=== PATIENT | female | born 1970 | race Caucasian/White ===

== ENCOUNTER 2016-08-26 17:42 | Inpatient (IN) ==
[2016-08-26] MEDS ORDERED: 0.9 % Sodium Chloride 1,000 ML IVC ONE ×2 (18:15→21:20)
--- NOTE | 2016-08-26 18:15 | Emergency Department Note ---
Disposition Clinical Impression: Superior mesenteric vein thrombosis, Vomiting, Acute diarrhea, Leukocytosis, Elevated C-reactive protein, Ascites, Small bowel edema Disposition: Admitted As Inpatient Referrals: [facility] [employer] [Primary Care Provider] - Forms: Work/School Release, ED Satisfaction Letter General Adult HPI - General Chief complaint: ED Abdominal Pain Stated complaint: ABD Pain Time Seen by Provider: 08/26/16 18:11 Source: patient Limitations: no limitations - History of Present Illness HPI Narrative: 45-year-old female reports emergency department complaining of severe midepigastric and right upper abdominal pain. The pain radiates to the back. She describes bilateral back pain. The patient has had no fall or injury. 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 She has been seen by Dr. Purdy and an ultrasound was done recently to evaluate right upper abdominal pain. The ultrasound was reportedly negative. The patient denies any previous abdominal surgery. There is no history of vaginal discharge or bleeding. She has no previous history of kidney stones. No urinary symptoms or bloody appearing urine. There is no history of at this time. The patient does not have any history of back surgery or back problems. There is no history of bowel or bladder dysfunction chest pain shortness of breath or abdominal pain. The patient is not known to be diabetic she does describe a history of hypertension. She has never had pancreatitis. There is no history of bloody stool. She describes several episodes of diarrhea. She has also had several episodes of emesis, nonbloody. No fevers. The patient developed severe abdominal pain today and came to the emergency department for further evaluation. There is no history of rash. There is no history of bulging in the abdomen. There is no history of syncope leg swelling or pain. The patient is not known to be anticoagulated. The patient has no history of malignancy. Pain Scale: 9 - Related Data Home Medications Medication Instructions Recorded Confirmed Albuterol Sulfate [Proventil Hfa] 2 puff IH Q6H PRN 08/26/16 08/26/16 Aspirin Enteric Coated [Aspirin EC] 162 mg PO DAILY 08/26/16 08/26/16 Atorvastatin [Lipitor] 10 mg PO HS 08/26/16 08/26/16 Etonogestrel/Ethinyl Estradiol 1 each VG AD 08/26/16 08/26/16 [Nuvaring Vaginal Ring] Furosemide [Lasix] 20 mg PO DAILY 08/26/16 08/26/16 Lisinopril [Zestril] 10 mg PO DAILY 08/26/16 08/26/16 Omeprazole Magnesium [Prilosec Otc] 20 mg PO DAILY 08/26/16 08/26/16 Rizatriptan Benzoate [Maxalt] 10 mg PO DAILY PRN 08/26/16 08/26/16 Allergies Allergy/AdvReac Type Severity Reaction Status Date / Time No Known Allergies Allergy Verified 08/26/16 19:31 All systems ED: reviewed and negative except as stated. Past Medical History - Past Medical History Medical history: Reports: GERD, hyperlipidemia, hypertension, other Psychiatric history: Reports: no psych history - Social History Smoking Status: Never smoker Smokeless Tobacco Status: No Alcohol use: Reports: none Drug use: Reports: none Physical Exam - General Limitations: no limitations General appearance: alert, in distress, other (Patient is standing upright and appears to very uncomfortable, she is somewhat diaphoretic but follows commands properly.) - Head Head exam: atraumatic, normocephalic, normal inspection - Eye Eye exam: Present: normal appearance, PERRL, EOMI. Absent: scleral icterus, conjunctival injection, miosis, mydriasis - ENT ENT exam: normal exam, normal oropharynx, mucous membranes moist, TM's normal bilaterally, normal external ear exam - Neck Neck exam: Present: normal inspection, full ROM, trachea midline. Absent: meningismus - Chest Chest inspection: Present: symmetric chest wall rise. Absent: tenderness - Respiratory Respiratory exam: Present: normal lung sounds bilaterally. Absent: respiratory distress, wheezes, accessory muscle use, prolonged expiratory phase - Cardiovascular Cardiovascular exam: Present: regular rate, normal rhythm, normal heart sounds - Abdominal Exam Abdominal exam: Present: soft, Non-Tender, hyperactive bowel sounds. Absent: rebound, rigidity, trauma, Wells's sign, Rovsing's sign Abdominal tenderness: Present: RUQ, epigastrium, moderate - Extremities Exam Extremities exam: Present: normal inspection, full ROM, normal capillary refill. Absent: tenderness, pedal edema, joint swelling, calf tenderness - Expanded Lower Extremity Exam Lower leg exam: Absent: Homans' sign Neurovascular/Tendon exam: Present: normal capillary refill. Absent: motor deficit, sensory deficit, tendon deficit, extremity cold to touch, pallor - Back Exam Back exam: Present: normal inspection, full ROM, CVA tenderness (R), CVA tenderness (L). Absent: tenderness, vertebral tenderness - Neurological Exam Neurological exam: Present: alert, oriented X3, CN II-XII intact. Absent: motor sensory deficit - Psychiatric Psychiatric exam: Present: agitated, anxious - Skin Skin exam: Present: warm, dry, intact, normal color, diaphoresis. Absent: rash , cyanosis, erythema, pallor, mottled Course - Reevaluation(s) Reevaluation #1: The patient declines pelvic examination she denies any vaginal discharge or bleeding. Leukocytosis and an elevated CRP noted. Chest x-ray EKG cardiac testing negative liver function tests lipase chem basic essentially unremarkable. Urinalysis pending. The patient states she cannot urinate. IV fluid was given. Patient family been in contact with Dr. Purdy who is aware that the patient has come to the ED, per reports he has requested a direct phone call consultation regarding the patient's status. I did speak directly with Dr. Purdy and updated him on the patient's testing and care. Vital Signs Temperature 97.4 F L 08/26/16 17:58 Pulse Rate 71 08/26/16 17:58 Respiratory Rate 20 08/26/16 17:58 Blood Pressure 110/58 08/26/16 17:58 O2 Sat by Pulse Oximetry 100 08/26/16 17:58 Temperature 97.4 F L 08/26/16 17:58 Pulse Rate 71 08/26/16 17:58 Respiratory Rate 20 08/26/16 17:58 Blood Pressure 110/58 08/26/16 17:58 O2 Sat by Pulse Oximetry 100 08/26/16 17:58 Oxygen Delivery Oxygen Delivery Room Air Medical Decision Making - MDM Narrative Medical decision making narrative: The patient was treated for pain in the ED. A second call was made, I consulted with the Dr. Purdy/Surgeon regarding the patient's CT findings which include what is described as superior mesenteric vein thrombosis and associated abnormalities via CT scan. Dr. Purdy recommends hospitalization under the medical service with heparinization. A formal STAT surgical consultation has been ordered. Heparin has been ordered. The patient is currently stable. I consulted with the hospitalist on-call Dr. Desai who has come to the bedside in the ED to evaluate the patient. Patient family have been informed regarding the patient's diagnostics and surgical recommendations. While in the ED Dr. Desai attempted to contact Dr. Purdy for direct consultation was unable to get through on his cell phone. A message was left. Dr. Desai also called Dr. Manjarrez/Surgeon on-call to review the case. After his consultation with Dr. Manjarrez, Dr. Desai will admit the patient and the surgical service will act as a medical social consultant. The patient is feeling more comfortable after several doses of Dilaudid. Blood cultures were sent as a precaution a second lactic acid was ordered Invanz was also ordered. The patient and family members are also alterable being managed at this institution versus transfer. - Lab Data Lab results reviewed: Yes I reviewed the patient's lab results. Result diagrams: 08/26/16 19:11 08/26/16 19:11 Lab Results 08/26/16 08/26/16 08/26/16 Range/Units 19:11 19:11 19:11 WBC 19.6 H D (4.3-11.1) K/mcL RBC 5.02 H (3.82-4.97) M/mcL Hgb 14.2 (11.5-15.4) g/dL Hct 41.4 (35.3-44.9) % MCV 82.5 L (83.0-100.0) fL MCH 28.3 (28.0-33.3) pg MCHC 34.3 (31.6-35.5) g/dL RDW 13.0 (11.5-14.5) % Plt Count 247 (140-400) K/mcL MPV 10.2 (9.4-12.4) fL Immature Gran % 0.4 (0-4) % Seg Neutrophils % 80.2 % Lymphocytes % 13.4 % Monocytes % 5.5 % Eosinophils % 0.3 % Basophils % 0.2 % Neutrophils # 15.7 H (1.6-8.9) K/mcL Lymphocytes # 2.6 (0.6-4.6) K/mcL Monocytes # 1.1 (0.0-1.3) K/mcL Eosinophils # 0.1 (0.0-0.6) K/mcL Basophils # 0.0 (0.0-0.2) K/mcL PT 10.8 (9.4-12.1) Seconds INR 1.0 APTT 22.5 L (26.0-36.0) Seconds Sodium 141 (136-145) mEq/L Potassium 3.5 (3.5-4.5) mEq/L Chloride 108 (98-109) mEq/L Carbon Dioxide 20 (19-29) mEq/L BUN 12 (7-20) mg/dL Creatinine 0.82 (0.57-1.11) mg/dL Est GFR ( Amer) > 60 (> 60) Est GFR (Non-Af Amer) > 60 (> 60) BUN/Creatinine Ratio 15 (6-26) Glucose 137 H (70-99) mg/dL Calculated Osmolality 294 (280-300) Lactic Acid (0.5-2.2) mmol/L Calcium 9.3 (8.6-10.8) mg/dL Total Bilirubin 0.7 (0.2-1.2) mg/dL Direct Bilirubin 0.3 (0.0-0.5) mg/dL Indirect Bilirubin 0.4 (0.0-1.2) mg/dL AST 15 (5-34) Units/L ALT 15 (0-55) Units/L Alkaline Phosphatase 82 (38-126) Units/L Troponin I (0-0.03) ng/mL C-Reactive Protein 183 H (Less than 5) mg/L Serum Total Protein 7.9 (6.0-8.3) g/dL Albumin 3.3 L (3.5-5.0) g/dL Globulin 4.6 H (2.4-3.5) g/dL Albumin/Globulin Ratio 0.7 L (1.1-2.2) Lipase 11 (8-78) Units/L Serum , Qual (Negative) 08/26/16 08/26/16 08/26/16 Range/Units 19:11 19:11 19:11 WBC (4.3-11.1) K/mcL RBC (3.82-4.97) M/mcL Hgb (11.5-15.4) g/dL Hct (35.3-44.9) % MCV (83.0-100.0) fL MCH (28.0-33.3) pg MCHC (31.6-35.5) g/dL RDW (11.5-14.5) % Plt Count (140-400) K/mcL MPV (9.4-12.4) fL Immature Gran % (0-4) % Seg Neutrophils % % Lymphocytes % % Monocytes % % Eosinophils % % Basophils % % Neutrophils # (1.6-8.9) K/mcL Lymphocytes # (0.6-4.6) K/mcL Monocytes # (0.0-1.3) K/mcL Eosinophils # (0.0-0.6) K/mcL Basophils # (0.0-0.2) K/mcL PT (9.4-12.1) Seconds INR APTT (26.0-36.0) Seconds Sodium (136-145) mEq/L Potassium (3.5-4.5) mEq/L Chloride (98-109) mEq/L Carbon Dioxide (19-29) mEq/L BUN (7-20) mg/dL Creatinine (0.57-1.11) mg/dL Est GFR ( Amer) (> 60) Est GFR (Non-Af Amer) (> 60) BUN/Creatinine Ratio (6-26) Glucose (70-99) mg/dL Calculated Osmolality (280-300) Lactic Acid 1.6 (0.5-2.2) mmol/L Calcium (8.6-10.8) mg/dL Total Bilirubin (0.2-1.2) mg/dL Direct Bilirubin (0.0-0.5) mg/dL Indirect Bilirubin (0.0-1.2) mg/dL AST (5-34) Units/L ALT (0-55) Units/L Alkaline Phosphatase (38-126) Units/L Troponin I 0.00 (0-0.03) ng/mL C-Reactive Protein (Less than 5) mg/L Serum Total Protein (6.0-8.3) g/dL Albumin (3.5-5.0) g/dL Globulin (2.4-3.5) g/dL Albumin/Globulin Ratio (1.1-2.2) Lipase (8-78) Units/L Serum , Qual Negative (Negative) - Radiology Data Radiology results reviewed: Yes I reviewed the patient's radiology results.
[2016-08-26] MEDS ORDERED: Ondansetron 4 MG/2 ML VIAL IVP ONE ×2 (18:16→19:34)
[2016-08-26] MEDS ORDERED: *HR* HYDROmorphone (PF) 1 MG/ML SYRINGE IVP ONE ×4 (18:16→21:21)
[2016-08-26 19:21] LABS: Basophils % 0.2 %; Eosinophils # 0.1 K/mcL (0.0-0.6); Eosinophils % 0.3 %; Hematocrit 41.4 % (35.3-44.9); Hemoglobin 14.2 g/dL (11.5-15.4); Immature Granulocytes % 0.4 % (0-4); Lymphocytes # 2.6 K/mcL (0.6-4.6); Lymphocytes % 13.4 %; Mean Corpuscular HGB Conc 34.3 g/dL (31.6-35.5); Mean Corpuscular Hemoglobin 28.3 pg (28.0-33.3); Mean Corpuscular Volume 82.5 fL (83.0-100.0); Mean Platelet Volume 10.2 fL (9.4-12.4); Monocytes # 1.1 K/mcL (0.0-1.3); Monocytes % 5.5 %; Neutrophils # 15.7 K/mcL (1.6-8.9); Platelet Count 247 K/mcL (140-400); Red Blood Count 5.02 M/mcL (3.82-4.97); Segmented Neutrophils % 80.2 %
[2016-08-26 19:26] LABS: Prothrombin Time 10.8 Seconds (9.4-12.1)
[2016-08-26 19:29] LABS: Activated Partial Thrombo Time 22.5 Seconds (26.0-36.0)
[2016-08-26 19:42] LABS: Alanine Aminotransferase 15 Units/L (0-55); Albumin 3.3 g/dL (3.5-5.0); Albumin/Globulin Ratio 0.7 (1.1-2.2); Alkaline Phosphatase 82 Units/L (38-126); Aspartate Amino Transferase 15 Units/L (5-34); BUN/Creatinine Ratio 15 (6-26); Bilirubin,Direct 0.3 mg/dL (0.0-0.5); Bilirubin,Indirect 0.4 mg/dL (0.0-1.2); Bilirubin,Total 0.7 mg/dL (0.2-1.2); Blood Urea Nitrogen 12 mg/dL (7-20); C-Reactive Protein 183 mg/L (Less than 5); Calcium 9.3 mg/dL (8.6-10.8); Carbon Dioxide 20 mEq/L (19-29); Chloride 108 mEq/L (98-109); Globulin 4.6 g/dL (2.4-3.5); Glucose 137 mg/dL (70-99); Lipase 11 Units/L (8-78); Osmolality,Calculated 294 (280-300); Potassium 3.5 mEq/L (3.5-4.5); Sodium 141 mEq/L (136-145); Total Protein 7.9 g/dL (6.0-8.3); eGFR For African Americans > 60 (> 60); eGFR For Non-African Americans > 60 (> 60)
[2016-08-26] MEDS ORDERED: *HR* Heparin 5,000 UNIT/ML VIAL IVP ONE (21:28)
[2016-08-26] MEDS ORDERED: *HR* Heparin 5,000 UNIT/ML VIAL IVP PRN (21:28)
[2016-08-26] MEDS: Heparin 25,000 UNIT/500 ML D5W 25,000 UNIT/500 ML MLS IVC SCH (22:40)
[2016-08-26] MEDS ORDERED: Ertapenem 1,000 MG in 0.9 % Sodium Chloride Mini Bag 100 ML IVPB ONE (22:49)
[2016-08-26] MEDS ORDERED: *HR* LORazepam 2 MG/ML VIAL IVP ONE (23:06)
[2016-08-27] MEDS ORDERED: Ondansetron 4 MG/2 ML VIAL IVP PRN (01:06)
[2016-08-27] MEDS ORDERED: Naloxone 0.4 MG/ML INJ IVP PRN (01:06)
[2016-08-27] MEDS ORDERED: *HR* HYDROmorphone (PF) 1 MG/ML SYRINGE IVP PRN (01:06)
--- NOTE | 2016-08-27 01:30 | Internal Med History&Physical ---
Date of Encounter: 08/26/16 Time of Encounter: 22:00 Assessment and Plan (1) Superior mesenteric vein thrombosis Current visit: Yes Status: Acute 1. Patient to be maintained on Heparin drip. 2. Surgery consult -- discussed with Dr. Manjarrez. 3. Pain control with IV Dilaudid and close monitoring. 4. Blood cultures obtained in ER. 5. Antibiotics initiated to cover GI alison (Zosyn and Flagyl). 6. Strict npo and IVF hydration. 7. Patient will need hypercoagulable work-up in the near future -- to be done as outpatient once patient recovers from acute illness. 8. Recommend stopping her hormone therapy/contraception (Nuvaring) as this may put her at increased risk for DVT/PE. (2) Small bowel edema Current visit: Yes Status: Acute 1. Due to SMV thrombus. 2. Surgery consult as above. 3. Strict npo. 4. Follow clinically and will defer to surgery for any surgical intervention. (3) Hypertension Current visit: Yes Status: Chronic 1. Hold all po meds. 2. Monitor BP and treat as necessary with IV meds. Qualifiers: Hypertension type: essential hypertension Qualified Code(s): I10 - Essential (primary) hypertension (4) DVT prophylaxis Current visit: Yes Status: Acute 1. On heparin drip. Internal Medicine - H&P: HPI Chief complaint: abdominal pain Admitted From: Emergency Dept Plans for Post Hospital Care: Home History of present illness: Ms. Reid is a 45 year old female who presented to the ER tonight with about a one-week history of abdominal pain, nausea, and vomiting. She had been seeing her surgeon for consideration of possible gallbladder disease. However, the abdominal pain became much worse to the point it was unbearable tonight. Workup in the ER revealed patient to have leukocytosis on routine labs. Chemistry profile was fairly unremarkable. She then had CT of the abdomen, which revealed a superior mesenteric vein thrombosis with some associated bowel wall edema. ER staff contacted Dr. Nathan Purdy regarding this patient as he had been seeing her in the office in consultation. He recommended patient be admitted to the hospitalist service with a surgical consult. Er staff then contacted me and I saw patient in the ER. Upon my assessment of the patient, she was writhing in pain and unable to get into a comfortable position. She described the pain as severe in her upper mid abdomen and radiating to her right side. Despite the severe pain, her vital signs are stable. Because of the thrombus in her superior mesenteric vein and associated bowel wall edema, I was very concerned about possible need for surgery at a [facility]. I tried contacting Dr. Nathan Purdy but I was unable to reach him. I then contacted Dr. Manjarrez, who was on-call for general surgery, and I spoke with him about the case. He reviewed the patient's CT scan and he then discussed the case with me. He recommended patient be admitted and started on IV heparin drip and antibiotics with nothing by mouth status. He agreed to see patient in surgery consultation and will follow and co-manage patient with us. Patient preferred to stay here at [place] and did not want to be transferred unless necessary. Given my above discussions with Dr. Manjarrez and available surgical services, we admitted patient to the hospitalist service with a consult to General surgery. Her pain was controlled in the ER with significant dosing of IV Dilaudid. Antibiotics were initiated in the ER. Blood cultures were drawn. Heparin drip was initiated in the ER as well. She was subsequently admitted to the hospitalist service thereafter. Per my discussions with her nurse, her pain is fairly well controlled now. Past Med Surg Social Fam HX - Past Medical History Attestation: Yes The following information was validated with the patient. Source: patient, old records reviewed, obtained from family Medical history: GERD, hyperlipidemia, hypertension Psychiatric history: no psych history - Past Surgical History Surgical History: - Social History Smoking Status: Never smoker Smokeless Tobacco Status: No Alcohol use: none Drug use: none Occupational status: employed Current living situation: Home, With Family Activity Level: Independent ambulation - Family History Father Hx Family Cardiac Disorders: Yes (stroke) Mother Hx Family Cardiac Disorders: No - Additional Family History Additional family history: No known FH of clotting disorder Internal Medicine - H&P: Meds Albuterol Sulfate [Proventil Hfa] 2 puff IH Q6H PRN 08/26/16 [History] Aspirin Enteric Coated [Aspirin EC] 162 mg PO DAILY 08/26/16 [History] Atorvastatin [Lipitor] 10 mg PO HS 08/26/16 [History] Etonogestrel/Ethinyl Estradiol [Nuvaring Vaginal Ring] 1 each VG AD 08/26/16 [ History] Furosemide [Lasix] 20 mg PO DAILY 08/26/16 [History] Lisinopril [Zestril] 10 mg PO DAILY 08/26/16 [History] Omeprazole Magnesium [Prilosec Otc] 20 mg PO DAILY 08/26/16 [History] Rizatriptan Benzoate [Maxalt] 10 mg PO DAILY PRN 08/26/16 [History] Allergies No Known Allergies Allergy (Verified 08/26/16 19:31) - Constitutional Constitutional: chills, no fever(s), no night sweats - EENT Eyes: no blurry vision, no change in vision Ears: no ear pain Nose, mouth and throat: no sinus pain, no sore throat - Cardiovascular Cardiovascular ROS IM: diaphoresis, no chest pain, no dyspnea - Respiratory Respiratory: no cough, no dyspnea, no hemoptysis, no dyspnea on exertion - Gastrointestinal Gastrointestinal: abdominal pain, nausea, no hematemesis, no hematochezia, no melena - Genitourinary Genitourinary: no dysuria, no hematuria - Musculoskeletal Musculoskeletal ROS IM: back pain, no arthralgias - Integumentary Integumentary IM: no rash, no jaundice - Neurological Neurological ROS: headache(s), no focal weakness - Psychiatric Psychiatric: no anxiety, no depression - Endocrine Endocrine IM: no polydipsia, no polyuria - Allergic/Immunologic Allergic/Immunologic: GI upset with certain foods, no wheezing - Constitutional Vitals: Temp Pulse Resp BP Pulse Ox 98.0 F 75 16 135/84 96 08/27/16 00:20 08/27/16 00:20 08/27/16 00:20 08/27/16 00:20 08/27/16 00:20 General appearance: Present: cooperative, A&O X 3, severe distress, answers questions appropriately Exam: pt writhing in pain on initial exam - Head Head exam: Present: atraumatic, normal inspection - Expanded Head Exam Head exam expanded: Absent: abrasion, general tenderness - Eye Eye exam: Present: EOMI, PERRL. Absent: scleral icterus Pupils: Present: normal accommodation - ENT ENT exam: Present: mucous membranes dry, normal exam, normal oropharynx - Neck Neck exam general surgery: Present: full ROM, supple. Absent: tenderness, thyromegaly - Respiratory Respiratory exam: Present: CTAB. Absent: rales, respiratory distress, rhonchi, wheezes - Cardiovascular Cardiovascular exam: Present: RRR, +S1, +S2. Absent: diastolic murmur, systolic murmur - GI/Abdominal GI/Abdominal exam: Present: guarding, hypoactive bowel sounds, tenderness ( diffuse -- mostly upper midabdomen with radiation to right side), no peritoneal signs. Absent: hepatomegaly, mass, rebound, splenomegaly - Extremities Exam Extremities exam: Present: full ROM, warm. Absent: calf tenderness, pedal edema , tenderness - Back Exam Back exam: Present: normal inspection. Absent: CVA tenderness (L), CVA tenderness (R) - Neurological Exam Neurological exam: Present: alert, CN II-XII intact, oriented X3, no focal deficits - Psychiatric Psychiatric exam: Present: anxious. Absent: depressed - Skin Skin exam: Present: dry, warm. Absent: rash Internal Med - H&P Results - Labs CBC & Chem 7: 08/26/16 19:11 08/26/16 19:11 - Diagnostic Studies CT scan - abdomen Additional comments: Report reviewed and findings discussed with Dr. Manjarrez - VTE Reasons for not Prescribing Prophylaxis: Not indicated-Anticoagulated or INR therapeutic
[2016-08-27 03:15] LABS: Bilirubin,Urine Negative (Negative); Blood,Urine Negative (Negative); Clarity,Urine Clear (Clear); Color,Urine Yellow (Yellow); Glucose,Urine (UA) Normal (Normal); Ketones,Urine 40 mg/dL (Negative); Leukocyte Esterase,Urine Negative (Negative); Nitrite,Urine Negative (Negative); Protein,Urine 30 mg/dL (Neg-Trace); Specific Gravity,Urine > 1.030 (1.010-1.025); Urobilinogen,Urine Normal (Normal)
[2016-08-27 03:18] LABS: Bacteria,Urine Few per hpf (None-Few); Hyaline Casts,Urine Few per lpf (None-Few); Squamous Epithelial Cell,Urine Many per lpf (None-Few)
[2016-08-27] MEDS ORDERED: *HR* HYDROmorphone (PF) 1 MG/ML SYRINGE IVP ONE (03:28)
[2016-08-27 05:07] LABS: Basophils % 0.1 %; Hematocrit 45.3 % (35.3-44.9); Hemoglobin 15.6 g/dL (11.5-15.4); Immature Granulocytes % 0.6 % (0-4); Lymphocytes # 0.8 K/mcL (0.6-4.6); Lymphocytes % 3.7 %; Mean Corpuscular HGB Conc 34.4 g/dL (31.6-35.5); Mean Corpuscular Hemoglobin 28.6 pg (28.0-33.3); Mean Corpuscular Volume 83.1 fL (83.0-100.0); Mean Platelet Volume 10.4 fL (9.4-12.4); Monocytes # 0.8 K/mcL (0.0-1.3); Monocytes % 3.6 %; Platelet Count 263 K/mcL (140-400); Red Blood Count 5.45 M/mcL (3.82-4.97); Red Cell Distribution Width 13.2 % (11.5-14.5)
[2016-08-27 05:22] LABS: Alanine Aminotransferase 12 Units/L (0-55); Albumin/Globulin Ratio 0.6 (1.1-2.2); Alkaline Phosphatase 71 Units/L (38-126); Aspartate Amino Transferase 11 Units/L (5-34); BUN/Creatinine Ratio 15 (6-26); Bilirubin,Total 0.4 mg/dL (0.2-1.2); Blood Urea Nitrogen 12 mg/dL (7-20); Calcium 8.5 mg/dL (8.6-10.8); Carbon Dioxide 16 mEq/L (19-29); Chloride 109 mEq/L (98-109); Globulin 4.2 g/dL (2.4-3.5); Glucose 221 mg/dL (70-99); Magnesium 1.7 mg/dL (1.6-2.6); Osmolality,Calculated 293 (280-300); Potassium 4.3 mEq/L (3.5-4.5); Sodium 138 mEq/L (136-145); Total Protein 6.8 g/dL (6.0-8.3); eGFR For African Americans > 60 (> 60); eGFR For Non-African Americans > 60 (> 60)
[2016-08-27] MEDS: *HR* Heparin 5,000 UNIT/ML VIAL IVP PRN ×2 (05:28→20:17)
[2016-08-27 05:34] LABS: Albumin 2.6 g/dL (3.5-5.0)
--- NOTE | 2016-08-27 06:24 | General Surgery Consult Note ---
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 I am very concerned about the level of her abdominal pain. Her white count did increase from 19,000-22, 000. I agree with the IV antibiotics, IV fluid hydration, and anticoagulation to prevent propagation of the SMV thrombus. Overall I am concerned about the possibility for the venous congestion of the small bowel causing an acute ischemic event of the small bowel that may require surgical intervention. I do think it will be appropriate to continue with this current course however I did caution the patient that it is possible that she may require a small bowel resection if her symptoms do not improve. She is currently not exhibiting signs of hypotension or tachycardia and I will modify her pain medication and allow ice chips at this time. The most important thing will be serial abdominal examination and monitoring of her vital signs. Discussed with the patient and and they agree with the above plan. Another issue that will need to be evaluated is the cause behind her SMV thrombus. She has no recent surgeries and no trauma to the area. Likely may require a workup for a hypercoagulable state. History of Present Illness Consult date: 08/27/16 Reason for consult: abdominal pain Requesting physician: Immanuel Corbett History of present illness: the patient is a 45 year old female who is known to [facility]. Resented to my office on 08/25/2016 with symptoms of epigastric abdominal pain associated with bloating that started approximately 4 days prior (this past Tuesday). She states that she had diarrhea at the time and did have an episode of nausea vomiting but currently only has the nausea. She saw me in the office and had an ultrasound of the gallbladder due to concern that this was biliary colic or acute cholecystitis symptoms prior to her office visit with the ultrasound was normal. A HIDA scan and liver function tests were then ordered and the patient was to follow-up in the office afterwards. The patient continued to have worsening pain symptoms and because of the excruciating nature of her pain she subsequently presented to [facility] yesterday evening for further evaluation of her symptoms. She denied any fever attempts and states that she did have multiple diarrhea yesterday (approximate 20) with no rectal bleeding. She denies flatus and states that her abdomen feels much more distended currently. She states that the pain is not currently controlled with current pain medications. When asked about with the patient due to her pain symptoms and a CT scan showing an SMV thrombus. Past Med Surg Social Fam HX - Past Medical History Medical history: GERD, hyperlipidemia, hypertension Psychiatric history: no psych history - Past Surgical History Surgical History: - Social History Smoking Status: Never smoker Smokeless Tobacco Status: No Alcohol use: none Drug use: none - Family History Father Hx Family Cardiac Disorders: Yes (stroke) Mother Hx Family Cardiac Disorders: No Medications and Allergies Albuterol Sulfate [Proventil Hfa] 2 puff IH Q6H PRN 08/26/16 [History] Aspirin Enteric Coated [Aspirin EC] 162 mg PO DAILY 08/26/16 [History] Atorvastatin [Lipitor] 10 mg PO HS 08/26/16 [History] Etonogestrel/Ethinyl Estradiol [Nuvaring Vaginal Ring] 1 each VG AD 08/26/16 [ History] Furosemide [Lasix] 20 mg PO DAILY 08/26/16 [History] Lisinopril [Zestril] 10 mg PO DAILY 08/26/16 [History] Omeprazole Magnesium [Prilosec Otc] 20 mg PO DAILY 08/26/16 [History] Rizatriptan Benzoate [Maxalt] 10 mg PO DAILY PRN 08/26/16 [History] Allergies No Known Allergies Allergy (Verified 08/26/16 19:31) Review of Systems All systems PM: reviewed and no additional remarkable complaints except as stated All systems PM: A 10-system review of systems was performed and is negative for pertinent findings except as documented above in the HPI. General Surgery Exam Initial Vital Signs Temp Pulse Resp BP Pulse Ox 97.4 F L 71 20 110/58 100 08/26/16 17:58 08/26/16 17:58 08/26/16 17:58 08/26/16 17:58 08/26/16 17:58 - Eyes PERRL, normal ocular movement - Respiratory normal expansion, normal respiratory effort, clear to auscultation - Cardiovascular Cardiovascular exam: Present: RRR, no murmurs/rubs/gallops - Abdomen Abdomen general surgery: Present: soft, distended, tender (Generalized abdominal pain with more pain noted in the mid to lower abdomen with palpation.) - Neurologic Present: CN 2-12 grossly intact - Musculoskeletal Present: other (No clubbing or cyanosis noted) - Psychiatric Psychiatric general surgery: Present: A&Ox3, oriented to person, oriented to place, oriented to time, speech is normal Exam Initial Vital Signs Temp Pulse Resp BP Pulse Ox 97.4 F L 71 20 110/58 100 08/26/16 17:58 08/26/16 17:58 08/26/16 17:58 08/26/16 17:58 08/26/16 17:58 Results - Labs 08/30/16 03:25 08/30/16 03:25 Abnormal lab results WBC 22.8 K/mcL (4.3-11.1) H 08/27/16 04:56 RBC 5.45 M/mcL (3.82-4.97) H 08/27/16 04:56 Hgb 15.6 g/dL (11.5-15.4) H 08/27/16 04:56 Hct 45.3 % (35.3-44.9) H 08/27/16 04:56 Neutrophils # 21.0 K/mcL (1.6-8.9) H 08/27/16 04:56 APTT 47.2 Seconds (26.0-36.0) H D 08/27/16 04:56 Carbon Dioxide 16 mEq/L (19-29) L 08/27/16 04:56 Glucose 221 mg/dL (70-99) H 08/27/16 04:56 POC Glucose 217 (58-89) H 08/27/16 05:32 Calcium 8.5 mg/dL (8.6-10.8) L 08/27/16 04:56 C-Reactive Protein 183 mg/L (Less than 5) H 08/26/16 19:11 Albumin 2.6 g/dL (3.5-5.0) L D 08/27/16 04:56 Globulin 4.2 g/dL (2.4-3.5) H 08/27/16 04:56 Albumin/Globulin Ratio 0.6 (1.1-2.2) L 08/27/16 04:56 Ur Specific [place] > 1.030 (1.010-1.025) H 08/27/16 03:00 Urine Protein 30 mg/dL (Neg-Trace) H 08/27/16 03:00 Urine Ketones 40 mg/dL (Negative) H 08/27/16 03:00 Urine Microscopic RBC 3-5 per hpf (0-3) H 08/27/16 03:00 Urine Microscopic WBC 5-15 per hpf (0-3) H 08/27/16 03:00 Ur Squamous Epith Cells Many per lpf (None-Few) H 08/27/16 03:00 Ur Culture Indicated? YES (NO) A 08/27/16 03:00 Diabetes panel 08/27/16 Range/Units 04:56 Sodium 138 (136-145) mEq/L Potassium 4.3 (3.5-4.5) mEq/L Chloride 109 (98-109) mEq/L Carbon Dioxide 16 L (19-29) mEq/L BUN 12 (7-20) mg/dL Creatinine 0.81 (0.57-1.11) mg/dL Glucose 221 H (70-99) mg/dL Calcium 8.5 L (8.6-10.8) mg/dL AST 11 (5-34) Units/L ALT 12 (0-55) Units/L Alkaline Phosphatase 71 (38-126) Units/L Albumin 2.6 L D (3.5-5.0) g/dL Calcium panel 08/27/16 Range/Units 04:56 Calcium 8.5 L (8.6-10.8) mg/dL Albumin 2.6 L D (3.5-5.0) g/dL Pituitary panel 08/27/16 Range/Units 04:56 Sodium 138 (136-145) mEq/L Potassium 4.3 (3.5-4.5) mEq/L Chloride 109 (98-109) mEq/L Carbon Dioxide 16 L (19-29) mEq/L BUN 12 (7-20) mg/dL Creatinine 0.81 (0.57-1.11) mg/dL Glucose 221 H (70-99) mg/dL Calcium 8.5 L (8.6-10.8) mg/dL Adrenal panel 08/27/16 Range/Units 04:56 Sodium 138 (136-145) mEq/L Potassium 4.3 (3.5-4.5) mEq/L Chloride 109 (98-109) mEq/L Carbon Dioxide 16 L (19-29) mEq/L BUN 12 (7-20) mg/dL Creatinine 0.81 (0.57-1.11) mg/dL Glucose 221 H (70-99) mg/dL Calcium 8.5 L (8.6-10.8) mg/dL Total Bilirubin 0.4 (0.2-1.2) mg/dL AST 11 (5-34) Units/L ALT 12 (0-55) Units/L Alkaline Phosphatase 71 (38-126) Units/L Albumin 2.6 L D (3.5-5.0) g/dL All other labs normal. - Imaging CT scan - abdomen: report reviewed, image reviewed (Evidence of edema of the distal ileum with mild ascites. SMV thrombus noted. No free air.) Consult Discharge Plan - Plan Referrals: Nemo Ro, LEVEL DESIGNER [Primary Care Provider] -
[2016-08-27] MEDS ORDERED: *HR* LORazepam 2 MG/ML VIAL IVP PRN (06:25)
[2016-08-27] MEDS: *HR* HYDROmorphone (PF) 1 MG/ML SYRINGE IVP PRN ×2 (06:32→08:46)
[2016-08-27] MEDS: Pantoprazole 40 MG VIAL IVP SCH (07:58)
[2016-08-27] MEDS: Piperacillin/Tazobactam 3.375 GM in D5% in Water (Mini-Bag+) 100 ML IVPB SCH ×3 (07:58→23:29)
[2016-08-27] MEDS: MetroNIDAZOLE 500 MG/100 ML 500 MG/100 ML BAG IVPB SCH ×3 (07:59→23:28)
[2016-08-27] MEDS ORDERED: Chloraseptic Spray 177 ML BOTTLE MM PRN (08:07)
--- NOTE | 2016-08-27 08:32 | Internal Med Progress Note ---
Date of Encounter: 08/27/16 Time of Encounter: 08:29 - Assessment and plan (1) Superior mesenteric vein thrombosis Current Visit: Yes Status: Acute Assessment and plan: continue heparin drip continue Zosyn and Flagyl IV day 2 Followed by the Surgery service to consider intervention ( bowel resection ) NG tube NPO IVF dilaudid PRN, consider RING FACER protonix IV will need hypercoagulable work up high risk (2) SIRS (systemic inflammatory response syndrome) Current Visit: Yes Status: Acute Assessment and plan: WBC 22, HR>100 worrisome for possible peritonitis (3) Intractable abdominal pain Current Visit: Yes Status: Acute (4) Leukocytosis Current Visit: Yes Status: Acute Qualifiers: Leukocytosis type: unspecified Qualified Code(s): D72.829 - Elevated white blood cell count, unspecified (5) Small bowel edema Current Visit: Yes Status: Acute (6) Hypertension Current Visit: Yes Status: Chronic Assessment and plan: stable Qualifiers: Hypertension type: essential hypertension Qualified Code(s): I10 - Essential (primary) hypertension - Subjective Interval history: complains of diffuse abdominal pain 6/10, positive rebound, no CP or SOB, no fever, no dysuria, legs are less swollen - Constitutional Vitals: Temp Pulse Resp BP Pulse Ox 97.8 F 109 16 130/87 94 08/27/16 07:03 08/27/16 07:03 08/27/16 07:03 08/27/16 07:03 08/27/16 07:03 General appearance: Present: cooperative, A&O X 3, severe distress, answers questions appropriately - Head Head exam: Present: atraumatic, normocephalic - Eye Eye exam: Present: PERRL, conjuntiva pink, sclera anicteric Pupils: Present: PERRL - Neck Neck exam general surgery: Present: supple, trachea midline. Absent: lymphadenopathy - Respiratory Respiratory exam: Present: CTAB. Absent: accessory muscle use, rales, rhonchi, wheezes - Cardiovascular Cardiovascular exam: Present: RRR, +S1, +S2. Absent: diastolic murmur, gallop, rubs, systolic murmur - GI/Abdominal GI/Abdominal exam: Present: diminished bowel sounds, distended, normal bowel sounds, soft, tenderness (diffuse tenderness), no peritoneal signs - Extremities Exam Extremities exam: Present: pedal edema (+1 non pitting edema in both lower extremities), warm, radial pulses palpable and symetrical. Absent: calf tenderness, cyanotic - Neurological Exam Neurological exam: Present: CN II-XII intact, oriented X3, no focal deficits. Absent: pronater drift, facial droop, speech deficit - Skin Skin exam: Present: dry, intact Internal Medicine: Result - Labs CBC & Chem 7: 08/27/16 04:56 08/27/16 04:56 Labs: Short CBC 08/27/16 Range/Units 04:56 WBC 22.8 H (4.3-11.1) K/mcL Hgb 15.6 H (11.5-15.4) g/dL Hct 45.3 H (35.3-44.9) % Plt Count 263 (140-400) K/mcL Neutrophils # 21.0 H (1.6-8.9) K/mcL BMP 08/27/16 04:56 Sodium 138 Potassium 4.3 Chloride 109 Carbon Dioxide 16 L BUN 12 Creatinine 0.81 Glucose 221 H Calcium 8.5 L Liver Function 08/27/16 Range/Units 04:56 Total Bilirubin 0.4 (0.2-1.2) mg/dL AST 11 (5-34) Units/L ALT 12 (0-55) Units/L Alkaline Phosphatase 71 (38-126) Units/L Albumin 2.6 L D (3.5-5.0) g/dL Urine 08/27/16 Range/Units 03:00 Urine Color Yellow (Yellow) Urine Clarity Clear (Clear) Urine pH 6.0 (5.0-8.0) pH Units Ur Specific [place] > 1.030 H (1.010-1.025) Urine Protein 30 H (Neg-Trace) mg/dL Urine Glucose (UA) Normal (Normal) mg/dL - ABG Interpretation ABG results: PT/INR, D-dimer PT 10.8 Seconds (9.4-12.1) 08/26/16 19:11 - VTE Reasons for not Prescribing Prophylaxis: Not indicated-Anticoagulated or INR therapeutic Consult Discharge Plan - Plan Referrals: Nemo Ro, COAL TRAM DRIVER [Primary Care Provider] -
[2016-08-27] MEDS ORDERED: *HR* HYDROmorphone 20 MG/20 ML PCA IVC PRN (09:11)
[2016-08-27] MEDS ORDERED: *HR* Dextrose 50 % in Water (Syg) 50 ML SYRINGE IVP PRN (09:13)
[2016-08-27] MEDS ORDERED: D5% in Water 1,000 ML IVC PRN (09:13)
[2016-08-27] MEDS ORDERED: Dextrose Gel 15 GM PO PRN ×2 (09:13)
[2016-08-27] MEDS: Insulin LISPRO 300 UNITS/3 ML VIAL SQ SCH ×4 (10:50→22:47)
[2016-08-27] MEDS: Heparin 25,000 UNIT/500 ML D5W 25,000 UNIT/500 ML MLS IVC SCH (13:30)
--- NOTE | 2016-08-27 13:33 | Electrocardiograph Report ---
[address] [place], [place] [address] Test Date: 2016-08-26 Pat Name: Alanna Reid Department: 102 Room: 3A25 Gender: F Electronics Engineering Technician: Msc : 1970 Requested By: Dimitrios Powell Order Number: [id number] Reading MD: Alverto Garcia Measurements Intervals [place] Rate: 71 P: 61 MT: 134 QRS: 61 QRSD: 93 T: 51 QT: 443 QTc: 466 Interpretive Statements SINUS RHYTHM Electronically Signed On 08-27-2016 13:31:57 EDT by Alverto Garcia
[2016-08-27] MEDS ORDERED: Lidocaine -MPF 1% 5 ML AMPUL INFILT ONE (15:13)
[2016-08-27] MEDS ORDERED: Ertapenem 1,000 MG in 0.9 % Sodium Chloride Mini Bag 100 ML IVPB ONE (22:06)
[2016-08-28] MEDS: Heparin 25,000 UNIT/500 ML D5W 25,000 UNIT/500 ML MLS IVC SCH ×2 (01:48→22:28)
[2016-08-28] MEDS: Insulin LISPRO 300 UNITS/3 ML VIAL SQ SCH ×5 (04:02→21:19)
[2016-08-28 04:46] LABS: Basophils % 0.1 %; Hemoglobin 13.4 g/dL (11.5-15.4); Immature Granulocytes % 0.6 % (0-4); Immature Platelets 6.9 % (1.1-6.1); Lymphocytes # 2.4 K/mcL (0.6-4.6); Mean Corpuscular HGB Conc 33.5 g/dL (31.6-35.5); Mean Corpuscular Volume 83.5 fL (83.0-100.0); Mean Platelet Volume 10.7 fL (9.4-12.4); Monocytes # 1.5 K/mcL (0.0-1.3); Monocytes % 6.5 %; Neutrophils # 19.5 K/mcL (1.6-8.9); Platelet Count 249 K/mcL (140-400); Red Blood Count 4.79 M/mcL (3.82-4.97); Red Cell Distribution Width 13.2 % (11.5-14.5); Segmented Neutrophils % 82.8 %
[2016-08-28 04:58] LABS: Alanine Aminotransferase 11 Units/L (0-55); Albumin 2.4 g/dL (3.5-5.0); Albumin/Globulin Ratio 0.6 (1.1-2.2); Alkaline Phosphatase 62 Units/L (38-126); Aspartate Amino Transferase 10 Units/L (5-34); BUN/Creatinine Ratio 14 (6-26); Bilirubin,Total 0.5 mg/dL (0.2-1.2); Blood Urea Nitrogen 11 mg/dL (7-20); Calcium 8.5 mg/dL (8.6-10.8); Carbon Dioxide 22 mEq/L (19-29); Chloride 103 mEq/L (98-109); Globulin 4.2 g/dL (2.4-3.5); Glucose 139 mg/dL (70-99); Osmolality,Calculated 282 (280-300); Sodium 135 mEq/L (136-145); Total Protein 6.6 g/dL (6.0-8.3); eGFR For African Americans > 60 (> 60); eGFR For Non-African Americans > 60 (> 60)
[2016-08-28 05:00] LABS: Potassium 3.6 mEq/L (3.5-4.5)
--- NOTE | 2016-08-28 08:33 | General Surgery Progress Note ---
Date of Encounter: 08/28/16 Time of Encounter: 11:20 - Assessment and Plan (1) Superior mesenteric vein thrombosis Current Visit: Yes Status: Acute Patient remains on heparin drip for superior mesenteric vein thrombosis. Admitted with concern for the possibility for the venous congestion of the small bowel causing an acute ischemic event of the small bowel that may require surgical intervention. Abdominal distention and pain have improved today.Patient denies any bowel movement or passing gas. She has been vomiting. She feels less distended than yesterday. She does note a decrease in her urine output stating that she urinates about 1 time per shift. Abdomen is soft, with distention that is improved from yesterday and some mild tenderness that is diffuse. No peritoneal signs are present, nonsurgical abdomen. H/H 13.4/40 <15.6/45.3 08/27 VSS, HR 91, BP 148/87-138/70 Small amount of gastric drainage noted. 08/27 UOP: 400 ml Serum creatinine stable at 0.77 with GFR greater than 60. Patient will need serial abdominal exams and close vital sign monitoring, specifically watching for tachycardia and hypotension. Plan: -Keep NG to intermittent suction. If she has increased abdominal pain or nause, stop suction and notify Dr. Bermudez. -Keep NPO. May have ice chips, lemon ice and popsicles as tolerated. -Continue serial abdominal exams, monitor VS closely -Continue IV antibiotics -Continue IVF -Continue heparin drip (2) Leukocytosis Current Visit: Yes Status: Acute WBC 23.6 with left shift. Increase from 08/27 WBC 22.8. The segmented neutrophil count WNL and there are no bands present. Patient is on IV Flagyl 500 every 8 hours, IV Zosyn 3.375 every 8 hours Abdomen is soft, with some distention that is improved from yesterday and some mild tenderness that is diffuse. No peritoneal signs are present, nonsurgical abdomen Plan: -Continue IV antibiotics -Continue serial abdominal exams Qualifiers: Leukocytosis type: unspecified Qualified Code(s): D72.829 - Elevated white blood cell count, unspecified (3) Hypertension Current Visit: Yes Status: Chronic Patient not tolerating by mouth medications, has not had her lisinopril as morning and states she has a headache from her blood pressure. She is requesting IV blood pressure medication. Plan: -IV lopressor 2.5mg q6hr Qualifiers: Hypertension type: essential hypertension Qualified Code(s): I10 - Essential (primary) hypertension Subjective Patient reports: no new complaints, feels better, still having pain, pain is less, no flatus, no bowel movement, nausea, vomiting, afebrile Narrative: Patient was seen and examined. She states that she has still been experiencing some nausea and some vomiting. Her nausea is worsened with movement, however she is able to tolerate ice chips. NG tube remains in place with some gastric drainage. She feels less distended and has less abdominal pain compared to admission. She states that her pain is a diffuse soreness. She denies passing any gas or having any bowel movement. She does note that she has a headache that she thinks is secondary an increase of blood pressure. She did not have her lisinopril this morning. She states she does not want to try any by mouth meds at this time and would prefer for control with IV medications. She states that as soon as her headache is under control she will try to get up and move around in an attempt to pass gas and bowel movement. She does remain on a CORN SHELLER pump for pain control, but is using it minimally. She states that her abdominal pain is well controlled. Objective Vital Signs - Last 8 Hours Temp Pulse Resp BP Pulse Ox 08/28/16 04:00 98.4 F 79 20 148/87 95 Intake and Output 08/27/16 08/28/16 08/28/16 23:59 07:59 15:59 Intake Total 1440 / 1440 1480 / 1480 Output Total 0 / 0 Balance 1440 / 1440 1480 / 1480 Intake: IV Fluids 1440 / 1440 1480 / 1480 0.45% Sodium Chloride 1000 / 1000 1000 / 1000 1000 Ml 1000 Ml 1,000 ML @ 125 mls/hr IVC .Q8H RIKY Rx#:[id number] Heparin 25,000 UNIT/500 240 / 240 280 / 280 ML D5W 25,000 unit In 500 ml @ 14 UNIT/KG/HR 32.64 mls/hr IVC .[id number] RIKY Rx#:[id number] Flagyl Premix 500 MG/100 100 / 100 100 / 100 ML 500 mg In 100 ml @ 100 mls/hr IVPB Q8HR [facility]IK[facility] Rx# :[id number] Zosyn 3.375 GM In 100 / 100 100 / 100 Dextrose 5% (Minibag+) 100 ML 100 ML @ 25 mls/hr IVPB Q8HR [facility] Rx#: [id number] Oral 0 / 0 Output: Urine 0 / 0 Other: Meal Dinner Percent of Meal Consumed 0% Weight 117.7 kg 119.8 kg Blood Glucose* 134 128 Patient Weight 08/28/16 23:59 Weight 119.8 kg - General physical appearance well developed, well nourished, moderate distress, moderate pain - Eyes PERRL, normal ocular movement - ENT atraumatic, normocephalic - Neck Neck exam: trachea midline - Respiratory normal expansion, normal respiratory effort, clear to auscultation - Cardiovascular Cardiovascular exam: Present: RRR, no murmurs/rubs/gallops Addtional Comments: pulses 2+ b/l UE/LE, no edema - Abdomen Abdomen: Present: bowel sounds present (hypoactive), soft, distended, tender ( minimal) Abdominal Tenderness: diffusely - Integumentary other (Right LE & Left UE cool, Left LE & Right UE warm) - Neurologic normal coordination, normal sensation - Musculoskeletal normal posture - Psychiatric oriented to time, oriented to person, oriented to place, speech is normal, memory intact - Labs 08/29/16 05:10 08/29/16 05:10 Diabetes panel 08/28/16 Range/Units 04:25 Sodium 135 L (136-145) mEq/L Potassium 3.6 (3.5-4.5) mEq/L Chloride 103 (98-109) mEq/L Carbon Dioxide 22 (19-29) mEq/L BUN 11 (7-20) mg/dL Creatinine 0.77 (0.57-1.11) mg/dL Glucose 139 H (70-99) mg/dL Calcium 8.5 L (8.6-10.8) mg/dL AST 10 (5-34) Units/L ALT 11 (0-55) Units/L Alkaline Phosphatase 62 (38-126) Units/L Albumin 2.4 L (3.5-5.0) g/dL Calcium panel 08/28/16 Range/Units 04:25 Calcium 8.5 L (8.6-10.8) mg/dL Albumin 2.4 L (3.5-5.0) g/dL Pituitary panel 08/28/16 Range/Units 04:25 Sodium 135 L (136-145) mEq/L Potassium 3.6 (3.5-4.5) mEq/L Chloride 103 (98-109) mEq/L Carbon Dioxide 22 (19-29) mEq/L BUN 11 (7-20) mg/dL Creatinine 0.77 (0.57-1.11) mg/dL Glucose 139 H (70-99) mg/dL Calcium 8.5 L (8.6-10.8) mg/dL Adrenal panel 08/28/16 Range/Units 04:25 Sodium 135 L (136-145) mEq/L Potassium 3.6 (3.5-4.5) mEq/L Chloride 103 (98-109) mEq/L Carbon Dioxide 22 (19-29) mEq/L BUN 11 (7-20) mg/dL Creatinine 0.77 (0.57-1.11) mg/dL Glucose 139 H (70-99) mg/dL Calcium 8.5 L (8.6-10.8) mg/dL Total Bilirubin 0.5 (0.2-1.2) mg/dL AST 10 (5-34) Units/L ALT 11 (0-55) Units/L Alkaline Phosphatase 62 (38-126) Units/L Albumin 2.4 L (3.5-5.0) g/dL - VTE Reasons for not Prescribing Prophylaxis: Not indicated-Anticoagulated or INR therapeutic Consult Discharge Plan - Plan Referrals: Nemo Ro, EMBOSSING UNIT OPERATOR [Primary Care Provider] - - Attending Attestation I examined this patient and my medical decision-making was reviewed with the COMPRESSED GASES TESTER/PA/Advanced Practice Nurse/Resident Physician. I agree with the documented findings, disposition and treatment plan as described except to the extent set forth below.
[2016-08-28] MEDS: Ondansetron 4 MG/2 ML VIAL IVP PRN ×2 (08:38→16:42)
[2016-08-28] MEDS: Piperacillin/Tazobactam 3.375 GM in D5% in Water (Mini-Bag+) 100 ML IVPB SCH ×2 (08:46→16:35)
[2016-08-28] MEDS: MetroNIDAZOLE 500 MG/100 ML 500 MG/100 ML BAG IVPB SCH ×2 (08:47→16:35)
[2016-08-28] MEDS: Pantoprazole 40 MG VIAL IVP SCH (08:47)
[2016-08-28] MEDS: *HR* Heparin 5,000 UNIT/ML VIAL IVP PRN (09:57)
[2016-08-28] MEDS: *HR* Metoprolol 5 MG/5 ML VIAL IVP SCH ×2 (12:11→17:28)
--- NOTE | 2016-08-28 12:31 | Internal Med Progress Note ---
Date of Encounter: 08/28/16 Time of Encounter: 12:05 - Assessment and plan (1) Superior mesenteric vein thrombosis Current Visit: Yes Status: Acute Assessment and plan: continue heparin drip continue Zosyn and Flagyl IV day3, increase in leucocytosis today however no fever. will follow surgical recommendation. clinically better, abdomen soft today, suction changed to intermittent suction last night, more nausea today, may cosider changing to continuous suction, will consult with surgery. NPO IVF continue dilaudid [employer]NER protonix IV will need hypercoagulable work up as OP. high risk (2) Vomiting Current Visit: Yes Status: Acute Assessment and plan: consider changing the suction to continuous. will change the zofran to q6hr for now. Qualifiers: Vomiting type: unspecified Vomiting Intractability: unspecified Nausea presence: with nausea Qualified Code(s): R11.2 - Nausea with vomiting, unspecified (3) Small bowel edema Current Visit: Yes Status: Acute Assessment and plan: 2/2 SMV thrombosis. serial abdominal exam. (4) Hypertension Current Visit: Yes Status: Chronic Assessment and plan: stable Qualifiers: Hypertension type: essential hypertension Qualified Code(s): I10 - Essential (primary) hypertension - Subjective Interval history: seen at the bedside, reports that the abdominal pain is better but she has more nausea. admitted for superior mesenteric vein thrombosis, on heparin drip. reports that the abdomen feels soft today but she hasnt passed gas. - Constitutional Vitals: Temp Pulse Resp BP Pulse Ox 97.6 F 91 16 138/70 95 08/28/16 09:02 08/28/16 09:02 08/28/16 11:29 08/28/16 09:02 08/28/16 11:29 General appearance: Present: cooperative, A&O X 3, severe distress, answers questions appropriately Exam: neck- supple chest- b/l clear, no added sounds CVS-s1 and s2,no mr//g abd-soft, diffusely tender, bs are absent, no rigidity or rebound. ext- no edema Internal Medicine: Result - Labs CBC & Chem 7: 08/28/16 04:25 08/28/16 04:25 Labs: Short CBC 08/28/16 Range/Units 04:25 WBC 23.6 H (4.3-11.1) K/mcL Hgb 13.4 D (11.5-15.4) g/dL Hct 40.0 (35.3-44.9) % Plt Count 249 (140-400) K/mcL Neutrophils # 19.5 H (1.6-8.9) K/mcL BMP 08/28/16 04:25 Sodium 135 L Potassium 3.6 Chloride 103 Carbon Dioxide 22 BUN 11 Creatinine 0.77 Glucose 139 H Calcium 8.5 L Liver Function 08/28/16 Range/Units 04:25 Total Bilirubin 0.5 (0.2-1.2) mg/dL AST 10 (5-34) Units/L ALT 11 (0-55) Units/L Alkaline Phosphatase 62 (38-126) Units/L Albumin 2.4 L (3.5-5.0) g/dL - ABG Interpretation ABG results: PT/INR, D-dimer PT 10.8 Seconds (9.4-12.1) 08/26/16 19:11 - VTE Reasons for not Prescribing Prophylaxis: Not indicated-Anticoagulated or INR therapeutic Consult Discharge Plan - Plan Referrals: Nemo Ro, TEXTILE TECHNOLOGIST [Primary Care Provider] -
[2016-08-28] MEDS ORDERED: *HR* Promethazine 25 MG/ML VIAL IVP PRN (21:06)
--- NOTE | 2016-08-28 21:18 | Event Note ---
Date of Encounter: 08/28/16 Time of Encounter: 21:16 I was paged by nursing staff due to nausea and vomiting. I examined the patient and her abdomen was mildly distended but was not firm originally and there is no rebound tenderness, no peritoneal signs. Vital signs were stable with no tachycardia or hypotension. We will give Phenergan to help with her nausea and vomiting.
[2016-08-29] MEDS: MetroNIDAZOLE 500 MG/100 ML 500 MG/100 ML BAG IVPB SCH ×4 (00:22→23:39)
[2016-08-29] MEDS: Piperacillin/Tazobactam 3.375 GM in D5% in Water (Mini-Bag+) 100 ML IVPB SCH ×4 (00:22→23:39)
[2016-08-29] MEDS: *HR* Metoprolol 5 MG/5 ML VIAL IVP SCH ×5 (00:39→23:40)
[2016-08-29] MEDS: Insulin LISPRO 300 UNITS/3 ML VIAL SQ SCH ×6 (00:41→21:32)
[2016-08-29 05:35] LABS: Basophils % 0.3 %; Eosinophils # 0.1 K/mcL (0.0-0.6); Eosinophils % 0.4 %; Hematocrit 31.6 % (35.3-44.9); Immature Granulocytes % 0.3 % (0-4); Lymphocytes # 3.5 K/mcL (0.6-4.6); Lymphocytes % 25.1 %; Mean Corpuscular HGB Conc 34.5 g/dL (31.6-35.5); Mean Corpuscular Hemoglobin 28.7 pg (28.0-33.3); Mean Corpuscular Volume 83.2 fL (83.0-100.0); Mean Platelet Volume 10.9 fL (9.4-12.4); Monocytes % 7.1 %; Neutrophils # 9.2 K/mcL (1.6-8.9); Platelet Count 237 K/mcL (140-400); Red Cell Distribution Width 13.1 % (11.5-14.5); Segmented Neutrophils % 66.8 %
[2016-08-29 05:36] LABS: Alanine Aminotransferase 10 Units/L (0-55); Albumin 2.1 g/dL (3.5-5.0); Albumin/Globulin Ratio 0.6 (1.1-2.2); Alkaline Phosphatase 50 Units/L (38-126); Aspartate Amino Transferase 9 Units/L (5-34); BUN/Creatinine Ratio 10 (6-26); Bilirubin,Total 0.4 mg/dL (0.2-1.2); Blood Urea Nitrogen 7 mg/dL (7-20); Carbon Dioxide 23 mEq/L (19-29); Chloride 106 mEq/L (98-109); Globulin 3.6 g/dL (2.4-3.5); Glucose 111 mg/dL (70-99); Osmolality,Calculated 285 (280-300); Sodium 138 mEq/L (136-145); Total Protein 5.7 g/dL (6.0-8.3); eGFR For African Americans > 60 (> 60); eGFR For Non-African Americans > 60 (> 60)
[2016-08-29 05:44] LABS: Hemoglobin 10.9 g/dL (11.5-15.4)
--- NOTE | 2016-08-29 07:49 | General Surgery Progress Note ---
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 Today, patient reports abdominal distention and pain have improved. Nausea is now controlled with Phenergan as Zofran did not work well for her in alleviating her symptoms of nausea and vomiting. Patient denies having flatus or bowel movement. Vital signs stable: Blood pressure 126/68 with a pulse of 70, respiratory rate 14, oxygen saturation 95% on room air. On exam: Abdomen is soft with minimal distention and mild diffuse tenderness to palpation throughout. No peritoneal signs are present. Nonsurgical abdomen. Small amount of gastric drainage is noted. Patient is voiding without difficulty. H/H trending down as follows: 08/29/16: 10.9/31.6 decrease from 13.4/40.0 on , decrease from 15.6/45.3 on 08/27/16. Plan will be to redraw hemoglobin and hematocrit scheduled for 1600 lab draw today and reevaluate patient this evening for signs/symptoms of anemia. Serum creatinine stable at 0.71 with a GFR greater than 60. Plan: -Continue heparin drip -Continue NG tube on intermittent suction. If patient has increasing abdominal pain or nausea discontinue suction and notify Dr. Bermudez. -Keep nothing by mouth. May have ice chips, lemon ice and popsicles as tolerated. -Continue serial abdominal exams, monitor vital signs closely: Specifically watch for tachycardia and hypotension. -Continue to monitor hemoglobin and hematocrit. Repeat Lab draw today at 1600 and reevaluate patient. -Continue IV antibiotics -Continue IV fluids but decrease total ivf rate 100cc/hr -Ambulate as patient tolerates (2) Leukocytosis Current Visit: Yes Status: Acute WBC 23.6 with left shift on 08/28; an Increase from 08/27 WBC 22.8. Today, WBC count has decreased to 13.8 and neutrophils have decreased to 9.2. The segmented neutrophil count WNL and there continue to be no bands present. Patient is on IV Flagyl 500 every 8 hours, IV Zosyn 3.375 every 8 hours Abdomen is soft with minimal distention that is improved from yesterday and some mild diffuse tenderness. No peritoneal signs are present. Nonsurgical abdomen. Plan: -Continue IV antibiotics -Continue serial abdominal exams Qualifiers: Leukocytosis type: unspecified Qualified Code(s): D72.829 - Elevated white blood cell count, unspecified (3) Hypertension Current Visit: Yes Status: Chronic Patient unable to tolerate medications by mouth. Her home medication lisinopril should be continued by IV. Plan: -Continue IV Lopressor 2.5 mg every 6 hours Qualifiers: Hypertension type: essential hypertension Qualified Code(s): I10 - Essential (primary) hypertension Subjective Patient reports: no new complaints, feels better, still having pain (Pain is described as radiating from her back around to her abdomen dull aching ), pain is less, voiding w/o difficulty, no flatus, no bowel movement, nausea, afebrile Narrative: Patient was seen and examined. Patient reports that last night she was having nausea but is feeling much better today since her medication was changed to Phenergan. Patient reports that she still feels distended but it has gotten a little bit better. She is voiding without difficulty however she has not had any flatus or bowel movements. She still has diffuse tenderness wrapping around her belly and pain that is well controlled and managed with medication via [employer]LEMENT PROC[employer] pump she states a has improved much and she feels that she can come off the pain medication as she has only used it minimally. NG tube is in place with gastric drainage. Patient reports that she has only had water and ice chips yesterday. States that she will try some lemon flavored iced today. Objective Vital Signs - Last 8 Hours Pulse Resp BP Pulse Ox 08/29/16 05:39 70 14 128/68 95 08/29/16 00:10 81 18 128/64 96 Intake and Output 08/28/16 08/28/16 08/29/16 15:59 23:59 07:59 Intake Total 1500 / 1500 1230 / 1230 1200 / 1200 Output Total 375 / 375 Balance 1500 / 1500 855 / 855 1200 / 1200 Intake: IV Fluids 1500 / 1500 1230 / 1230 1200 / 1200 0.45% Sodium Chloride 900 / 900 1000 / 1000 1000 / 1000 1000 Ml 1000 Ml 1,000 ML @ 125 mls/hr IVC .Q8H [facility] Rx#:[id number] Heparin 25,000 UNIT/500 420 / 420 30 / 30 ML D5W 25,000 unit In 500 ml @ 14 UNIT/KG/HR 32.64 mls/hr IVC .[id number] [facility] Rx#:[id number] Flagyl Premix 500 MG/100 90 / 90 100 / 100 100 / 100 ML 500 mg In 100 ml @ 100 mls/hr IVPB Q8HR [facility] Rx# :[id number] Zosyn 3.375 GM In / 90 100 / 100 100 / 100 Dextrose 5% (Minibag+) 100 ML 100 ML @ 25 mls/hr IVPB Q8HR [facility] Rx#: [id number] Output: Gastric Drainage 375 / 375 Right Nare 100 / 100 Other: # Voids 2 Blood Glucose* 109 119 104 - General physical appearance well developed, well nourished, moderate distress, obese - Eyes normal ocular movement - ENT atraumatic, normocephalic - Neck Neck exam: trachea midline - Respiratory normal expansion, normal respiratory effort, clear to auscultation - Cardiovascular Cardiovascular exam: Present: RRR, no murmurs/rubs/gallops - Abdomen Abdomen: Present: bowel sounds present (Left lower quadrant), soft, distended, tender (minimal). Absent: guarding, rebound, rigid - Integumentary no rash, no abnormal pigmentation, other (Bilateral lower extremities cool, bilateral upper extremities warm) - Neurologic normal coordination, normal sensation - Musculoskeletal normal posture - Psychiatric oriented to time, oriented to person, oriented to place, speech is normal - Labs 08/29/16 05:10 08/29/16 05:10 Short CBC 08/29/16 Range/Units 05:10 WBC 13.8 H (4.3-11.1) K/mcL Hgb 10.9 L D (11.5-15.4) g/dL Hct 31.6 L (35.3-44.9) % Plt Count 237 (140-400) K/mcL Neutrophils # 9.2 H (1.6-8.9) K/mcL BMP 08/29/16 Range/Units 05:10 Sodium 138 (136-145) mEq/L Potassium 3.0 L (3.5-4.5) mEq/L Chloride 106 (98-109) mEq/L Carbon Dioxide 23 (19-29) mEq/L BUN 7 (7-20) mg/dL Creatinine 0.71 (0.57-1.11) mg/dL Glucose 111 H (70-99) mg/dL Calcium 8.0 L (8.6-10.8) mg/dL Liver Function 08/29/16 Range/Units 05:10 Total Bilirubin 0.4 (0.2-1.2) mg/dL AST 9 (5-34) Units/L ALT 10 (0-55) Units/L Alkaline Phosphatase 50 (38-126) Units/L Albumin 2.1 L (3.5-5.0) g/dL Vital Signs Temp Pulse Resp BP Pulse Ox 08/29/16 11:05 16 96 08/29/16 11:00 75 17 97 08/29/16 05:39 70 14 128/68 95 08/29/16 00:10 81 18 128/64 96 08/28/16 22:27 17 759 08/28/16 20:15 98.1 F 84 17 143/84 97 08/28/16 17:28 98.0 F 70 16 138/79 93 08/28/16 15:58 18 95 08/28/16 12:25 97.6 F 68 16 131/70 96 Intake and Output 08/28/16 08/29/16 08/29/16 23:59 07:59 15:59 Intake Total 1230 / 1230 1200 / 1200 300 / 300 Output Total 375 / 375 Balance 855 / 855 1200 / 1200 300 / 300 Intake: IV Fluids 1230 / 1230 1200 / 1200 300 / 300 0.45% Sodium Chloride 1000 / 1000 1000 / 1000 1000 Ml 1000 Ml 1,000 ML @ 125 mls/hr IVC .Q8H [facility] Rx#:[id number] Heparin 25,000 UNIT/500 30 / 30 300 / 300 ML D5W 25,000 unit In 500 ml @ 14 UNIT/KG/HR 32.64 mls/hr IVC .[id number] [facility] Rx#:[id number] Flagyl Premix 500 MG/100 100 / 100 100 / 100 ML 500 mg In 100 ml @ 100 mls/hr IVPB Q8HR [facility] Rx# :[id number] Zosyn 3.375 GM In 100 / 100 100 / 100 Dextrose 5% (Minibag+) 100 ML 100 ML @ 25 mls/hr IVPB Q8HR [facility] Rx#: [id number] Output: Gastric Drainage 375 / 375 Right Nare 100 / 100 Other: Blood Glucose* 119 106 117 - VTE Reasons for not Prescribing Prophylaxis: Not indicated-Anticoagulated or INR therapeutic Consult Discharge Plan - Plan Referrals: Nemo Ro, FAMILY DENTIST [Primary Care Provider] -
[2016-08-29] MEDS ORDERED: Potassium Chloride 40 MEQ, Lidocaine 1% 2 ML in D5% in Water 500 ML IVPB ONE (07:51)
[2016-08-29] MEDS: Pantoprazole 40 MG VIAL IVP SCH (09:01)
[2016-08-29] MEDS: Heparin 25,000 UNIT/500 ML D5W 25,000 UNIT/500 ML MLS IVC SCH ×2 (09:02→19:52)
--- NOTE | 2016-08-29 10:39 | Internal Med Progress Note ---
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 will follow surgical recommendation. clinically better, abdomen soft today. NPO with ice chips. IVF continue dilaudid [employer], if low requirement, can change stop it. protonix IV will need hypercoagulable work up as OP. high risk (2) Vomiting Current Visit: Yes Status: Acute Assessment and plan: does not c/o nausea at this time continue zofran to q6hr for now. Qualifiers: Vomiting type: unspecified Vomiting Intractability: unspecified Nausea presence: with nausea Qualified Code(s): R11.2 - Nausea with vomiting, unspecified (3) Small bowel edema Current Visit: Yes Status: Acute Assessment and plan: 2/2 SMV thrombosis. serial abdominal exam. (4) Hypertension Current Visit: Yes Status: Chronic Assessment and plan: stable Qualifiers: Hypertension type: essential hypertension Qualified Code(s): I10 - Essential (primary) hypertension - Subjective Interval history: seen at the bedside, reports that the abdominal pain is better , had vomiting last night and was given phenergan. admitted for superior mesenteric vein thrombosis, on heparin drip. reports that the abdomen feels soft today , feels like her bowels are moving, has not passed gas or stool. - Constitutional Vitals: Temp Pulse Resp BP Pulse Ox 98.1 F 70 14 128/68 95 08/28/16 20:15 08/29/16 05:39 08/29/16 05:39 08/29/16 05:39 08/29/16 05:39 General appearance: Present: cooperative, A&O X 3, severe distress, answers questions appropriately Exam: neck- supple chest- b/l clear, no added sounds CVS-s1 and s2, no mr/g/ abd-soft, mildly distended, bs are absent. no peritoneal signs. ext- no edema neuro- no focal defecits skin- dry, no rashes Internal Medicine: Result - Labs CBC & Chem 7: 08/29/16 05:10 08/29/16 05:10 Labs: Short CBC 08/29/16 Range/Units 05:10 WBC 13.8 H (4.3-11.1) K/mcL Hgb 10.9 L D (11.5-15.4) g/dL Hct 31.6 L (35.3-44.9) % Plt Count 237 (140-400) K/mcL Neutrophils # 9.2 H (1.6-8.9) K/mcL BMP 08/29/16 05:10 Sodium 138 Potassium 3.0 L Chloride 106 Carbon Dioxide 23 BUN 7 Creatinine 0.71 Glucose 111 H Calcium 8.0 L Liver Function 08/29/16 Range/Units 05:10 Total Bilirubin 0.4 (0.2-1.2) mg/dL AST 9 (5-34) Units/L ALT 10 (0-55) Units/L Alkaline Phosphatase 50 (38-126) Units/L Albumin 2.1 L (3.5-5.0) g/dL - ABG Interpretation ABG results: PT/INR, D-dimer PT 10.8 Seconds (9.4-12.1) 08/26/16 19:11 - VTE Reasons for not Prescribing Prophylaxis: Not indicated-Anticoagulated or INR therapeutic Consult Discharge Plan - Plan Referrals: Nemo Ro, STEAMTABLE WORKER [Primary Care Provider] -
[2016-08-29 17:06] LABS: Hematocrit 35.1 % (35.3-44.9); Hemoglobin 11.7 g/dL (11.5-15.4)
[2016-08-30 03:47] LABS: Basophils % 0.3 %; Eosinophils # 0.2 K/mcL (0.0-0.6); Hematocrit 31.8 % (35.3-44.9); Hemoglobin 10.6 g/dL (11.5-15.4); Immature Granulocytes % 0.3 % (0-4); Lymphocytes # 3.8 K/mcL (0.6-4.6); Lymphocytes % 39.9 %; Mean Corpuscular HGB Conc 33.3 g/dL (31.6-35.5); Mean Corpuscular Hemoglobin 27.7 pg (28.0-33.3); Mean Platelet Volume 10.4 fL (9.4-12.4); Monocytes # 0.7 K/mcL (0.0-1.3); Monocytes % 7.2 %; Neutrophils # 4.8 K/mcL (1.6-8.9); Platelet Count 249 K/mcL (140-400); Red Blood Count 3.83 M/mcL (3.82-4.97); Red Cell Distribution Width 13.1 % (11.5-14.5); Segmented Neutrophils % 50.3 %
[2016-08-30] MEDS: Insulin LISPRO 300 UNITS/3 ML VIAL SQ SCH ×6 (03:54→20:06)
[2016-08-30 03:59] LABS: BUN/Creatinine Ratio 7 (6-26); Calcium 8.1 mg/dL (8.6-10.8); Carbon Dioxide 24 mEq/L (19-29); Chloride 107 mEq/L (98-109); Glucose 111 mg/dL (70-99); Magnesium 1.8 mg/dL (1.6-2.6); Osmolality,Calculated 288 (280-300); Phosphorous 3.2 mg/dL (2.3-4.7); Sodium 140 mEq/L (136-145); eGFR For African Americans > 60 (> 60); eGFR For Non-African Americans > 60 (> 60)
[2016-08-30 04:00] LABS: Blood Urea Nitrogen 5 mg/dL (7-20)
[2016-08-30] MEDS: *HR* Metoprolol 5 MG/5 ML VIAL IVP SCH ×3 (05:25→18:00)
[2016-08-30] MEDS: Heparin 25,000 UNIT/500 ML D5W 25,000 UNIT/500 ML MLS IVC SCH ×2 (05:39→15:51)
[2016-08-30] MEDS ORDERED: Potassium Chloride 40 MEQ, Lidocaine 1% 2 ML in D5% in Water 500 ML IVPB ONE (08:02)
--- NOTE | 2016-08-30 08:12 | General Surgery Progress Note ---
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 She has no abdominal pain states the last time she used the pain medication was yesterday and it was for headache not because of abdominal pain. She had resolution of her nausea vomiting on Tuesday when Phenergan was added to Zofran. She has not had a bowel movement but does admit to small amounts of flatus. Will clamp NG tube and continue with the ice chips last Popsicles for today. To consider removal of the NG tube within the next 24 hours. Subjective Patient reports: other (the patient states she did have one episode of flatus this am. NGT has been on LIWS overnight (she clamped the NGT to use the restroom).) Objective Vital Signs - Last 8 Hours Temp Pulse Resp BP Pulse Ox 08/30/16 07:00 69 17 131/80 97 08/30/16 05:26 97.7 F 75 16 115/73 97 Intake and Output 08/29/16 08/30/16 08/30/16 23:59 07:59 15:59 Intake Total 1600 / 1600 400 / 400 Output Total 950 / 950 200 / 200 Balance 650 / 650 200 / 200 Intake: IV Fluids 1600 / 1600 400 / 400 0.45% Sodium Chloride 300 / 300 1000 Ml 1000 Ml 1,000 ML @ 125 mls/hr IVC .Q8H [facility] Rx#:[id number] Heparin 25,000 UNIT/500 600 / 600 400 / 400 ML D5W 25,000 unit In 500 ml @ 14 UNIT/KG/HR 32.64 mls/hr IVC .[id number] [facility] Rx#:[id number] Flagyl Premix 500 MG/100 100 / 100 ML 500 mg In 100 ml @ 100 mls/hr IVPB Q8HR [facility] Rx# :[id number] Zosyn 3.375 GM In 100 / 100 Dextrose 5% (Minibag+) 100 ML 100 ML @ 25 mls/hr IVPB Q8HR [facility] Rx#: [id number] KCl 40 MEQ Xylocaine 2 ML 500 / 500 In Dextrose 5% 500 ML @ 130.5 mls/hr IVPB ONCE ONE Rx#:[id number] Output: Urine 950 / 950 200 / 200 Other: # Voids 1 Blood Glucose* 105 102 104 - Abdomen Abdomen: Present: bowel sounds present, soft, distended (mild distension. Mild tympany. No pain with palpation.) - Labs 08/30/16 03:25 08/30/16 03:25 Diabetes panel 08/30/16 Range/Units 03:25 Sodium 140 (136-145) mEq/L Potassium 3.0 L (3.5-4.5) mEq/L Chloride 107 (98-109) mEq/L Carbon Dioxide 24 (19-29) mEq/L BUN 5 L (7-20) mg/dL Creatinine 0.69 (0.57-1.11) mg/dL Glucose 111 H (70-99) mg/dL Calcium 8.1 L (8.6-10.8) mg/dL Calcium panel 08/30/16 Range/Units 03:25 Calcium 8.1 L (8.6-10.8) mg/dL Phosphorus 3.2 (2.3-4.7) mg/dL Pituitary panel 08/30/16 Range/Units 03:25 Sodium 140 (136-145) mEq/L Potassium 3.0 L (3.5-4.5) mEq/L Chloride 107 (98-109) mEq/L Carbon Dioxide 24 (19-29) mEq/L BUN 5 L (7-20) mg/dL Creatinine 0.69 (0.57-1.11) mg/dL Glucose 111 H (70-99) mg/dL Calcium 8.1 L (8.6-10.8) mg/dL Adrenal panel 08/30/16 Range/Units 03:25 Sodium 140 (136-145) mEq/L Potassium 3.0 L (3.5-4.5) mEq/L Chloride 107 (98-109) mEq/L Carbon Dioxide 24 (19-29) mEq/L BUN 5 L (7-20) mg/dL Creatinine 0.69 (0.57-1.11) mg/dL Glucose 111 H (70-99) mg/dL Calcium 8.1 L (8.6-10.8) mg/dL - VTE Reasons for not Prescribing Prophylaxis: Not indicated-Anticoagulated or INR therapeutic Consult Discharge Plan - Plan Referrals: Nemo Ro, SILVINO [Primary Care Provider] -
[2016-08-30] MEDS: Pantoprazole 40 MG VIAL IVP SCH (08:43)
[2016-08-30] MEDS: Piperacillin/Tazobactam 3.375 GM in D5% in Water (Mini-Bag+) 100 ML IVPB SCH ×2 (08:43→14:49)
[2016-08-30] MEDS: MetroNIDAZOLE 500 MG/100 ML 500 MG/100 ML BAG IVPB SCH ×2 (08:45→14:48)
[2016-08-30] MEDS ORDERED: *HR* HYDROmorphone (PF) 1 MG/ML SYRINGE IVP PRN (12:17)
--- NOTE | 2016-08-30 12:17 | Internal Med Progress Note ---
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 will follow surgical recommendation. clinically better, abdomen soft today. ice chips and popsicles. IVF will stop the dilaudid [employer]. protonix IV will need hypercoagulable work up as OP, change to oral AC once able to take orally. high risk (2) Vomiting Current Visit: Yes Status: Acute Assessment and plan: does not c/o nausea at this time continue zofran prn now. Qualifiers: Vomiting type: unspecified Vomiting Intractability: unspecified Nausea presence: with nausea Qualified Code(s): R11.2 - Nausea with vomiting, unspecified (3) Small bowel edema Current Visit: Yes Status: Acute Assessment and plan: 2/2 SMV thrombosis. serial abdominal exam. (4) Hypertension Current Visit: Yes Status: Chronic Assessment and plan: stable Qualifiers: Hypertension type: essential hypertension Qualified Code(s): I10 - Essential (primary) hypertension - Time Spent With Patient 25 - 35 minutes - Subjective Interval history: seen at the bedside, reports that the abdominal pain is better ,no nausea or vomting now. admitted for superior mesenteric vein thrombosis, on heparin drip. passed gas, small BM thi smorning - Constitutional Vitals: Temp Pulse Resp BP Pulse Ox 97.7 F 69 16 131/80 97 08/30/16 05:26 08/30/16 07:00 08/30/16 10:55 08/30/16 07:00 08/30/16 10:55 General appearance: Present: cooperative, A&O X 3, severe distress, answers questions appropriately Exam: neck- supple chest- b/l clear, no added sounds CVS-s1 and s2, no mr/g/ abd-soft, mildly distended, bs sluggish. no peritoneal signs. ext- no edema neuro- no focal defecits skin- dry, no rashes Internal Medicine: Result - Labs CBC & Chem 7: 08/30/16 03:25 08/30/16 03:25 Labs: Short CBC 08/29/16 08/30/16 Range/Units 17:00 03:25 WBC 9.5 (4.3-11.1) K/mcL Hgb 11.7 10.6 L (11.5-15.4) g/dL Hct 35.1 L 31.8 L (35.3-44.9) % Plt Count 249 (140-400) K/mcL Neutrophils # 4.8 (1.6-8.9) K/mcL BMP 08/30/16 03:25 Sodium 140 Potassium 3.0 L Chloride 107 Carbon Dioxide 24 BUN 5 L Creatinine 0.69 Glucose 111 H Calcium 8.1 L - ABG Interpretation ABG results: PT/INR, D-dimer PT 10.8 Seconds (9.4-12.1) 08/26/16 19:11 - VTE Reasons for not Prescribing Prophylaxis: Not indicated-Anticoagulated or INR therapeutic Consult Discharge Plan - Plan Referrals: Nemo Ro CNP [Primary Care Provider] - 09/08/16 1:00 pm
[2016-08-31] MEDS: Piperacillin/Tazobactam 3.375 GM in D5% in Water (Mini-Bag+) 100 ML IVPB SCH ×3 (00:25→15:11)
[2016-08-31] MEDS: MetroNIDAZOLE 500 MG/100 ML 500 MG/100 ML BAG IVPB SCH ×3 (00:27→15:10)
[2016-08-31] MEDS: *HR* Metoprolol 5 MG/5 ML VIAL IVP SCH ×4 (00:27→16:52)
[2016-08-31] MEDS: Insulin LISPRO 300 UNITS/3 ML VIAL SQ SCH ×6 (00:28→21:03)
--- NOTE | 2016-08-31 07:37 | General Surgery Progress Note ---
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 Will start full liquids this am. If tolerates then will advance to soft. May concern will be to observe for cramping which may occur with diet advancement. Will await Hematology consult for recommendation regarding anticoagulation and also regarding workup for the etiology behind her SMV thrombus. Subjective Patient reports: feels better, other (noted some bloating. Positive BMs and flatus. NGT accidentally removed this morning. No nausea or vomiting.) Objective Vital Signs - Last 8 Hours Temp Pulse Resp BP Pulse Ox 08/31/16 04:16 98.6 F 89 18 134/69 96 Intake and Output 08/30/16 08/30/16 08/31/16 15:59 23:59 07:59 Intake Total 800 / 800 100 / 100 1030 / 1030 Output Total 1250 / 1250 200 / 200 300 / 300 Balance -450 / -450 -100 / -100 730 / 730 Intake: IV Fluids 800 / 800 100 / 100 1000 / 1000 0.45% Sodium Chloride 1000 / 1000 1000 Ml 1000 Ml 1,000 ML @ 125 mls/hr IVC .Q8H [facility] Rx#:[id number] Heparin 25,000 UNIT/500 500 / 500 ML D5W 25,000 unit In 500 ml @ 14 UNIT/KG/HR 32.64 mls/hr IVC .[id number] [facility] Rx#:[id number] Flagyl Premix 500 MG/100 200 / 200 ML 500 mg In 100 ml @ 100 mls/hr IVPB Q8HR [facility] Rx# :[id number] Zosyn 3.375 GM In 100 / 100 100 / 100 Dextrose 5% (Minibag+) 100 ML 100 ML @ 25 mls/hr IVPB Q8HR [facility] Rx#: [id number] Oral 0 / 0 30 / 30 Output: Urine 1250 / 1250 200 / 200 300 / 300 Other: Stool Size Small Smear Small Stool Consistency loose loose Stool Characteristics Normal for Patient Stool Color Brown Brown Green # Voids 3 0 0 # Bowel Movements 1 Weight 119.8 kg 119.3 kg Blood Glucose* 99 103 117 Patient Weight 08/31/16 23:59 Weight 119.3 kg - General physical appearance well developed, well nourished, no distress - Respiratory normal expansion, normal respiratory effort - Abdomen Abdomen: Present: soft, non tender - Labs 08/31/16 09:15 08/31/16 09:15 - VTE Reasons for not Prescribing Prophylaxis: Not indicated-Anticoagulated or INR therapeutic Consult Discharge Plan - Plan Referrals: Nemo Ro CNP [Primary Care Provider] - 09/08/16 1:00 pm
[2016-08-31] MEDS: Pantoprazole 40 MG VIAL IVP SCH (07:54)
[2016-08-31 09:30] LABS: Basophils % 0.5 %; Eosinophils # 0.2 K/mcL (0.0-0.6); Eosinophils % 1.9 %; Hematocrit 33.2 % (35.3-44.9); Hemoglobin 11.2 g/dL (11.5-15.4); Immature Granulocytes % 0.5 % (0-4); Immature Platelets 4.1 % (1.1-6.1); Lymphocytes # 2.7 K/mcL (0.6-4.6); Lymphocytes % 31.6 %; Mean Corpuscular HGB Conc 33.7 g/dL (31.6-35.5); Mean Corpuscular Hemoglobin 27.9 pg (28.0-33.3); Mean Corpuscular Volume 82.6 fL (83.0-100.0); Mean Platelet Volume 10.5 fL (9.4-12.4); Monocytes # 0.8 K/mcL (0.0-1.3); Monocytes % 8.8 %; Neutrophils # 4.8 K/mcL (1.6-8.9); Platelet Count 298 K/mcL (140-400); Red Blood Count 4.02 M/mcL (3.82-4.97); Red Cell Distribution Width 13.3 % (11.5-14.5); Segmented Neutrophils % 56.7 %
[2016-08-31 09:53] LABS: BUN/Creatinine Ratio 7 (6-26); Blood Urea Nitrogen 5 mg/dL (7-20); Calcium 8.3 mg/dL (8.6-10.8); Carbon Dioxide 24 mEq/L (19-29); Chloride 107 mEq/L (98-109); Glucose 113 mg/dL (70-99); Osmolality,Calculated 290 (280-300); Potassium 3.4 mEq/L (3.5-4.5); Sodium 141 mEq/L (136-145); eGFR For African Americans > 60 (> 60); eGFR For Non-African Americans > 60 (> 60)
[2016-08-31] MEDS: Simethicone 80 MG TAB.CHEW PO PRN ×2 (12:08→16:59)
--- NOTE | 2016-08-31 13:41 | Oncology Office Consult Note ---
HPI-History of Present Illness Follow Up Date: 08/31/16 Requesting Physician: Dr. Manjarrez Primary Care Provider: Nemo Ro CNP Chief complaint: SMV thrombosis History of present illness: This is a 45-year-old female with a history of hyperlipidemia, morbid obesity, hypertension and GERD who presented to ER with chief complaint one-week history of abdominal pain, nausea and vomiting. 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 Surgery was consulted and patient was admitted to the hospital for further management. Patient was started on IV heparin drip and IV antibiotic for the above finding, during this hospital stay patient was managed medically with no surgical intervention. Hematology/oncology was consulted for further recommendation for anticoagulation and hypercoagulable workup. Patient states that she has family history of pulmonary embolism in her mother side of grandmother, however patient has no history of blood clots. Patient takes oral contraceptive medication of nuvaring, patient denies history of smoking, denies recent surgeries. Patient states that her abdominal pain today is much better than when she came to the hospital, patient is tolerating full liquid diet. Vitals and History - Height/Weight/Pain Height: 1.63 m - Pulse Oximetry Fraction of Inspired Oxygen: 21 O2 Sat by Pulse Oximetry: 96 - Consciousness/Orientation Level Of Consciousness: Awake, Alert, Appropriate, Follows Commands - Past Medical History Past Medical History: GERD, hyperlipidemia, hypertension - Family History Family History: other family history (Grandmother of mother's side has a history of pulmonary embolism) - Social History Smoking Status: Never smoker Smokeless Tobacco Status: No Alcohol use PMH: none Drug use: none Employment Status: [employer] Employ[employer] Living Arrangement: Family Review Of Systems - Exam Provider Comments:: Patient came in with diffuse abdominal pain along with nausea and vomiting. Patient denies headache, fever, chill, shortness of breath, productive cough, chest pain, constipation, diarrhea, or dysuria. Oncology - Medications Albuterol Sulfate [Proventil Hfa] 2 puff IH Q6H PRN 08/26/16 [History] Aspirin Enteric Coated [Aspirin EC] 162 mg PO DAILY 08/26/16 [History] Atorvastatin [Lipitor] 10 mg PO HS 08/26/16 [History] Etonogestrel/Ethinyl Estradiol [Nuvaring Vaginal Ring] 1 each VG AD 08/26/16 [ History] Furosemide [Lasix] 20 mg PO DAILY 08/26/16 [History] Lisinopril [Zestril] 10 mg PO DAILY 08/26/16 [History] Omeprazole Magnesium [Prilosec Otc] 20 mg PO DAILY 08/26/16 [History] Rizatriptan Benzoate [Maxalt] 10 mg PO DAILY PRN 08/26/16 [History] Allergies No Known Allergies Allergy (Verified 08/26/16 19:31) OARRS - Suspicious Activity Suspicious Activity: No Physical Exam Physical Exam: General appearance: Present: cooperative, A&O X 3, severe distress, answers questions appropriately Exam: - Head Head exam: Present: atraumatic, normal inspection - Expanded Head Exam Head exam expanded: Absent: abrasion, general tenderness - Eye Eye exam: Present: EOMI, PERRL. Absent: scleral icterus Pupils: Present: normal accommodation - ENT ENT exam: Present: mucous membranes dry, normal exam, normal oropharynx - Neck Neck exam general surgery: Present: full ROM, supple. Absent: tenderness, thyromegaly - Respiratory Respiratory exam: Present: CTAB. Absent: rales, respiratory distress, rhonchi, wheezes - Cardiovascular Cardiovascular exam: Present: RRR, +S1, +S2. Absent: diastolic murmur, systolic murmur - GI/Abdominal GI/Abdominal exam: Present: Normoactive bowel sounds 4, soreness to touch diffusely in her abdomen, no peritoneal signs. Absent: hepatomegaly, mass, rebound, splenomegaly - Extremities Exam Extremities exam: Present: full ROM, warm. Absent: calf tenderness, pedal edema , tenderness - Back Exam Back exam: Present: normal inspection. Absent: CVA tenderness (L), CVA tenderness (R) - Neurological Exam Neurological exam: Present: alert, CN II-XII intact, oriented X3, no focal deficits - Psychiatric Psychiatric exam: Present: anxious. Absent: depressed - Skin Skin exam: Present: dry, warm. Absent: rash Oncology - Results - Labs Labs: Short CBC 08/31/16 Range/Units 09:15 WBC 8.5 (4.3-11.1) K/mcL Hgb 11.2 L (11.5-15.4) g/dL Hct 33.2 L (35.3-44.9) % Plt Count 298 (140-400) K/mcL Neutrophils # 4.8 (1.6-8.9) K/mcL [facility] 08/31/16 09:15 Sodium 141 Potassium 3.4 L Chloride 107 Carbon Dioxide 24 BUN 5 L Creatinine 0.70 Glucose 113 H Calcium 8.3 L - Patient Problem List (1) Superior mesenteric vein thrombosis Status: Acute Code(s): I81 - Portal vein thrombosis SNOMED Code(s): 596697686 Plan: Patient has no previous history of blood clots, never had a hypercoagulable workup in the past, patient's grandmother of her mother's side has a history of a pulmonary embolism, patient takes oral contraceptive medication of nuvaring, which can increase the risk of thrombosis, she states that she will stop taking contraceptive pill from now on, patient denies history of smoking or recent surgeries. Patient's abdominal pain has significantly improved without surgical intervention with IV heparin drip, patient can be switched to oral anticoagulation agent such as a Xarelto when she is ready to be discharged, in the morning we will order lab testing for d-dimer, factor v leiden and prothrombin gene mutation, patient will need to follow-up with hematology/ oncology clinic as outpatient for further hypercoagulable workup testing and management of oral anticoagulation therapy. - Reoccurence Is this a re-occurence?: No
--- NOTE | 2016-08-31 15:05 | Internal Med Progress Note ---
Date of Encounter: 08/31/16 Time of Encounter: 15:01 - Assessment and plan (1) Superior mesenteric vein thrombosis Current Visit: Yes Status: Acute Assessment and plan: continue Zosyn and Flagyl IV day6, leucocytosis has improved. clinically better, abdomen soft today. diet changed to full liquids decrease IVF protonix IV will need hypercoagulable work up , oncology has been consulted. possible change to oral AC high risk (2) Vomiting Current Visit: Yes Status: Acute Assessment and plan: does not c/o nausea at this time continue zofran prn now. Qualifiers: Vomiting type: unspecified Vomiting Intractability: unspecified Nausea presence: with nausea Qualified Code(s): R11.2 - Nausea with vomiting, unspecified (3) Small bowel edema Current Visit: Yes Status: Acute Assessment and plan: 2/2 SMV thrombosis. clinically improved (4) Hypertension Current Visit: Yes Status: Chronic Assessment and plan: stable Qualifiers: Hypertension type: essential hypertension Qualified Code(s): I10 - Essential (primary) hypertension - Subjective Interval history: seen at the bedside, reports that the abdominal pain is better ,no nausea or vomting now. admitted for superior mesenteric vein thrombosis, on heparin drip. moving bowel ,passed gas and NG tube has been removed. - Constitutional Vitals: Temp Pulse Resp BP Pulse Ox 98.6 F 69 18 128/73 96 08/31/16 04:16 08/31/16 08:00 08/31/16 08:00 08/31/16 08:00 08/31/16 13:41 General appearance: Present: cooperative, A&O X 3, severe distress, answers questions appropriately Exam: neck- supple chest- b/l clear, no added sounds CVS-s1 and s2, no mr/g/ abd-soft, few bowel sounds heard, no peritoneal signs. ext- no edema neuro- no focal defecits skin- dry, no rashes Internal Medicine: Result - Labs CBC & Chem 7: 08/31/16 09:15 08/31/16 09:15 Labs: Short CBC 08/31/16 Range/Units 09:15 WBC 8.5 (4.3-11.1) K/mcL Hgb 11.2 L (11.5-15.4) g/dL Hct 33.2 L (35.3-44.9) % Plt Count 298 (140-400) K/mcL Neutrophils # 4.8 (1.6-8.9) K/mcL BMP 08/31/16 09:15 Sodium 141 Potassium 3.4 L Chloride 107 Carbon Dioxide 24 BUN 5 L Creatinine 0.70 Glucose 113 H Calcium 8.3 L - ABG Interpretation ABG results: PT/INR, D-dimer PT 10.8 Seconds (9.4-12.1) 08/26/16 19:11 - VTE Reasons for not Prescribing Prophylaxis: Not indicated-Anticoagulated or INR therapeutic Consult Discharge Plan - Plan Referrals: Nemo Ro AMPOULE EXAMINER [Primary Care Provider] - 09/08/16 1:00 pm
[2016-08-31] MEDS: Heparin 25,000 UNIT/500 ML D5W 25,000 UNIT/500 ML MLS IVC SCH (15:09)
[2016-09-01] MEDS: *HR* Metoprolol 5 MG/5 ML VIAL IVP SCH ×2 (00:13→05:26)
[2016-09-01] MEDS: MetroNIDAZOLE 500 MG/100 ML 500 MG/100 ML BAG IVPB SCH ×2 (00:21→07:37)
[2016-09-01] MEDS: Piperacillin/Tazobactam 3.375 GM in D5% in Water (Mini-Bag+) 100 ML IVPB SCH (00:27)
[2016-09-01 01:04] LABS: Activated Partial Thrombo Time 128.7 Seconds (26.0-36.0)
[2016-09-01 01:12] LABS: Heparin anti-factor XA UFH 0.78 IU/mL (0.30-0.70)
[2016-09-01] MEDS: Heparin 25,000 UNIT/500 ML D5W 25,000 UNIT/500 ML MLS IVC SCH (02:09)
[2016-09-01] MEDS: Insulin LISPRO 300 UNITS/3 ML VIAL SQ SCH ×3 (05:27→07:38)
--- NOTE | 2016-09-01 07:17 | General Surgery Progress Note ---
Date of Encounter: 09/01/16 Time of Encounter: 07:15 - Assessment and Plan (1) Superior mesenteric vein thrombosis Current Visit: Yes Status: Acute Appreciate the hematology consultation. They will be following up with her as an outpatient. From a surgical standpoint I do not think that she will require any type of surgical intervention and I think it would be appropriate for discharge as long as it is okay with the primary service. I will be following up with the patient in approximately 3-4 weeks and will consider a repeat CAT scan image of the abdomen and pelvis in about 2-3 months. Subjective Patient reports: other (The patient states she tolerated solid foods yesterday but did have some cramping pain. No nause or vomiting.) Objective Vital Signs - Last 8 Hours Pulse BP 09/01/16 00:04 79 127/78 Intake and Output 08/31/16 08/31/16 09/01/16 15:59 23:59 07:59 Intake Total 200 / 200 200 / 200 500 / 500 Output Total 500 / 500 Balance 200 / 200 -300 / -300 500 / 500 Intake: IV Fluids 200 / 200 200 / 200 500 / 500 Heparin 25,000 UNIT/500 500 / 500 ML D5W 25,000 unit In 500 ml @ 14 UNIT/KG/HR 32.64 mls/hr IVC .[id number] RIKY Rx#:[id number] Flagyl Premix 500 MG/100 100 / 100 100 / 100 ML 500 mg In 100 ml @ 100 mls/hr IVPB Q8HR RIKY Rx# :[id number] Zosyn 3.375 GM In 100 / 100 100 / 100 Dextrose 5% (Minibag+) 100 ML 100 ML @ 25 mls/hr IVPB Q8HR RIKY Rx#: [id number] Output: Urine 500 / 500 Other: Weight 120.7 kg Blood Glucose* 106 95 104 Patient Weight 09/01/16 23:59 Weight 120.7 kg - General physical appearance well developed, well nourished, no distress - Abdomen Abdomen: Present: soft, non tender - Labs 08/31/16 09:15 08/31/16 09:15 Diabetes panel 08/31/16 Range/Units 09:15 Sodium 141 (136-145) mEq/L Potassium 3.4 L (3.5-4.5) mEq/L Chloride 107 (98-109) mEq/L Carbon Dioxide 24 (19-29) mEq/L BUN 5 L (7-20) mg/dL Creatinine 0.70 (0.57-1.11) mg/dL Glucose 113 H (70-99) mg/dL Calcium 8.3 L (8.6-10.8) mg/dL Calcium panel 08/31/16 Range/Units 09:15 Calcium 8.3 L (8.6-10.8) mg/dL Pituitary panel 08/31/16 Range/Units 09:15 Sodium 141 (136-145) mEq/L Potassium 3.4 L (3.5-4.5) mEq/L Chloride 107 (98-109) mEq/L Carbon Dioxide 24 (19-29) mEq/L BUN 5 L (7-20) mg/dL Creatinine 0.70 (0.57-1.11) mg/dL Glucose 113 H (70-99) mg/dL Calcium 8.3 L (8.6-10.8) mg/dL Adrenal panel 08/31/16 Range/Units 09:15 Sodium 141 (136-145) mEq/L Potassium 3.4 L (3.5-4.5) mEq/L Chloride 107 (98-109) mEq/L Carbon Dioxide 24 (19-29) mEq/L BUN 5 L (7-20) mg/dL Creatinine 0.70 (0.57-1.11) mg/dL Glucose 113 H (70-99) mg/dL Calcium 8.3 L (8.6-10.8) mg/dL - VTE Reasons for not Prescribing Prophylaxis: Not indicated-Anticoagulated or INR therapeutic Consult Discharge Plan - Plan Referrals: Nemo Ro CNP [Primary Care Provider] - 09/08/16 1:00 pm
[2016-09-01 07:19] VITALS: BP 151/90
[2016-09-01] MEDS: Pantoprazole 40 MG VIAL IVP SCH (07:37)
[2016-09-01 07:40] LABS: Factor V Leiden Normal (Normal); Prothrombin G20210A Mutation HETEROZYGOUS (Normal)
--- NOTE | 2016-09-01 08:46 | Oncology Inp Consult Note ---
<Aleksey Huerta - Last Filed: 09/01/16 08:44> Date of Encounter: 09/01/16 Time of Encounter: 08:44 Assessment and Plan (1) Superior mesenteric vein thrombosis Status: Acute Assessment and plan: Patient has no previous history of blood clots, never had a hypercoagulable workup in the past, patient's grandmother of her mother's side has a history of a pulmonary embolism, patient takes oral contraceptive medication of nuvaring, which can increase the risk of thrombosis, she states that she will stop taking contraceptive pill from now on, patient denies history of smoking or recent surgeries. Patient's abdominal pain has significantly improved without surgical intervention with IV heparin drip, patient can be switched to oral anticoagulation agent such as a Xarelto when she is ready to be discharged, in the morning we will order lab testing for d-dimer, factor v leiden and prothrombin gene mutation, patient will need to follow-up with hematology/ oncology clinic as outpatient for further hypercoagulable workup testing and management of oral anticoagulation therapy. - Data of Consult Consult date: 08/31/16 Requesting Physician: Ariel Weir Primary Care Provider: Nemo Ro CNP - Consult Narrative Reason for consult: SMV thrombosis History of present illness: Ms. Reid is a 45 year old female with a history of hyperlipidemia, morbid obesity, hypertension and GERD who presented to ER with chief complaint one- week history of abdominal pain, nausea and vomiting. 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 Surgery was consulted and patient was admitted to the hospital for further management. Patient was started on IV heparin drip and IV antibiotic for the above finding, during this hospital stay patient was managed medically with no surgical intervention. Hematology/oncology was consulted for further recommendation for anticoagulation and hypercoagulable workup. Patient states that she has family history of pulmonary embolism in her mother side of grandmother, however patient has no history of blood clots. Patient takes oral contraceptive medication of nuvaring, patient denies history of smoking, denies recent surgeries. Patient states that her abdominal pain today is much better than when she came to the hospital, patient is tolerating full liquid diet. Past Med Surg Social Fam HX - Past Medical History Medical history: GERD, hyperlipidemia, hypertension Psychiatric history: no psych history - Past Surgical History Surgical History: - Social History Smoking Status: Never smoker Smokeless Tobacco Status: No Alcohol use: none Drug use: none - Family History Father Hx Family Cardiac Disorders: Yes (stroke) Mother Hx Family Cardiac Disorders: No Medications and Allergies Albuterol Sulfate [Proventil Hfa] 2 puff IH Q6H PRN 08/26/16 [History] Aspirin Enteric Coated [Aspirin EC] 162 mg PO DAILY 08/26/16 [History] Atorvastatin [Lipitor] 10 mg PO HS 08/26/16 [History] Etonogestrel/Ethinyl Estradiol [Nuvaring Vaginal Ring] 1 each VG AD 08/26/16 [ History] Furosemide [Lasix] 20 mg PO DAILY 08/26/16 [History] Lisinopril [Zestril] 10 mg PO DAILY 08/26/16 [History] Omeprazole Magnesium [Prilosec Otc] 20 mg PO DAILY 08/26/16 [History] Rizatriptan Benzoate [Maxalt] 10 mg PO DAILY PRN 08/26/16 [History] Allergies No Known Allergies Allergy (Verified 08/26/16 19:31) Review of systems: Patient came in with diffuse abdominal pain along with nausea and vomiting. Patient denies headache, fever, chill, shortness of breath, productive cough, chest pain, constipation, diarrhea, or dysuria. Oncology - Exam - Constitutional Vitals: Temp Pulse Resp BP Pulse Ox 98.3 F 65 17 151/90 95 09/01/16 07:14 09/01/16 07:14 09/01/16 07:14 09/01/16 07:14 09/01/16 07:14 General appearance: morbidly obese, no acute distress - Head Head exam: Present: atraumatic, normal inspection, normocephalic - Eye Eye exam: Present: EOMI, PERRL Pupils: Present: PERRL - ENT ENT exam: Present: mucous membranes dry, normal external ear exam - Neck Neck exam: Present: full ROM, normal inspection. Absent: tenderness - Respiratory Respiratory exam: Present: CTAB. Absent: accessory muscle use, wheezes - Cardiovascular Cardiovascular exam: Present: RRR, +S1, +S2. Absent: clicks, rubs, systolic murmur - GI/Abdominal GI/Abdominal exam: Present: normal bowel sounds, soft. Absent: distended, firm , rebound, rigid, tenderness - Extremities Exam Extremities exam: Present: normal inspection. Absent: calf tenderness, pedal edema, tenderness - Neurological Exam Neurological exam: Present: alert, CN II-XII intact, oriented X3, no focal deficits. Absent: altered, pronater drift, facial droop Oncology - Results - Labs Labs: Short CBC 08/31/16 Range/Units 09:15 WBC 8.5 (4.3-11.1) K/mcL Hgb 11.2 L (11.5-15.4) g/dL Hct 33.2 L (35.3-44.9) % Plt Count 298 (140-400) K/mcL Neutrophils # 4.8 (1.6-8.9) K/mcL BMP 08/31/16 09:15 Sodium 141 Potassium 3.4 L Chloride 107 Carbon Dioxide 24 BUN 5 L Creatinine 0.70 Glucose 113 H Calcium 8.3 L Consult Discharge Plan - Plan Instructions: Rivaroxaban (By mouth), Chronic Hypertension (DC) Additional Instructions: As tolerated Referrals: Nemo Ro CNP [Primary Care Provider] - 09/08/16 1:00 pm Christian Ruiz MD [Partnered Physician] - (His office/cancer center will call you with appt date & time.) <Christian Ruiz - Last Filed: 09/01/16 13:21> Date of Encounter: 09/01/16 - Data of Consult Requesting Physician: Ariel Weir Primary Care Provider: Nemo Ro CNP - Consult Narrative History of present illness: Ms. Reid is a 45 year old female Oncology - Exam - Constitutional Vitals: Temp Pulse Resp BP Pulse Ox 98.3 F 65 17 151/90 95 09/01/16 07:14 09/01/16 07:14 09/01/16 07:14 09/01/16 07:14 09/01/16 07:14 - Attending Attestation I examined this patient and my medical decision-making was reviewed with the SMOKE INSPECTOR/PA/Advanced Practice Nurse/Resident Physician. I agree with the documented findings, disposition and treatment plan as described except to the extent set forth below. Patient is currently hospitalized for unexplained, unprovoked SMV thrombosis. She presented with acute abdominal pain symptoms and had an abdomen CT 08/26/16 which showed SMV thrombus associated with edema of the small bowel and small bowel mesentery associated with some small volume ascites. She's been on anticoagulant with heparin and has had an excellent improvement with complete resolution of her abdominal pain symptoms. Hematology is consulted regarding further evaluation/management of her unusual clotting behavior. Patient seen and examined at bedside. Chest reviewed for details of ongoing care of by hospital team which is much appreciated. Dr. Manjarrez was also kind enough to discuss patient's case with me regarding consult question. Patient herself does not have any personal history of clotting problems or malignancy. Family history significant for what appears to be a provoked clot in her grandmother who was dealing with chronic illness. Patient herself has not had any prior diagnosis of malignancy and she has not had any constitutional symptoms such as fevers, chills, night sweats, weight appetite changes, aquagenic pruritus. She is on control with NuvaRing. She is in good spirits today and anticipating discharge in the near future. Her workup to date has not revealed any obvious abnormality such as cytopenias, liver or kidney abnormality. Pancreatic enzymes normal. She does not have any other clotting risk factors such as prolonged immobility on the VTE provoking medications. She reports a episode of cold sores and the pathology evaluate him by Dr. Dowling dermatology about a year ago. Right lower lip biopsy from 02/21/15 was compatible with impetigo. Abdomen/Pelvis CT 08/26/16 18:19 IMPRESSION: Superior mesenteric vein thrombosis. There is associated small bowel edema, small bowel mesenteric edema, and small volume ascites. D/ / Jones Lima MD / Jones Lima MD Interpreting Provider: Jones Lima MD thrombosis: Reviewed the diagnostic considerations for unusual clotting behavior and she understands basis for concern about an underlying hypercoagulable state. Based on the above, thrombophilia studies including factor V Leiden mutation, prothrombin gene mutation etc. have been sent for further evaluation. Unable to complete rest of thrombophilia studies due to recent clot and ongoing anticoagulation. D-dimer has also been sent to get a sense of a clotting cascade activity and establish a baseline. This would be useful to in the future if there is consideration for stopping anticoagulation. Regarding anticoagulation management, I agree with planned course of anticoagulation including transitioning her from current heparin infusion to DOACs. On Xarelto is planned. Will anticoagulate her for 3-6 months at a minimum. Longer duration of anticoagulation may be needed depending on results of thrombophilia studies and residual clot burden on imaging. Once she is medically optimal, she can be discharged and will arrange for patient follow up in 2-3 weeks with hematology for further evaluation and ongoing management. Thanks for involving us in the care of this extremely pleasant lady.
[2016-09-01] MEDS ORDERED: *HR* Rivaroxaban 15 MG TABLET PO SCH (09:30)
--- NOTE | 2016-09-01 09:35 | Discharge Summary ---
Date of Encounter: 09/01/16 Time of Encounter: 09:33 - Discharge Diagnosis (1) Superior mesenteric vein thrombosis Priority: Primary Status: Acute (2) Vomiting Priority: Secondary Status: Acute Qualifiers: Vomiting type: unspecified Vomiting Intractability: unspecified Nausea presence: with nausea Qualified Code(s): R11.2 - Nausea with vomiting, unspecified (3) Small bowel edema Priority: Primary Status: Acute (4) Hypertension Priority: Secondary Status: Chronic Qualifiers: Hypertension type: essential hypertension Qualified Code(s): I10 - Essential (primary) hypertension - Discharge Medications Home Medications: Albuterol Sulfate [Proventil Hfa] 2 puff IH Q6H PRN 08/26/16 [History] Aspirin Enteric Coated [Aspirin EC] 162 mg PO DAILY 08/26/16 [History] Atorvastatin [Lipitor] 10 mg PO HS 08/26/16 [History] Etonogestrel/Ethinyl Estradiol [Nuvaring Vaginal Ring] 1 each VG AD 08/26/16 [ History] Furosemide [Lasix] 20 mg PO DAILY 08/26/16 [History] Lisinopril [Zestril] 10 mg PO DAILY 08/26/16 [History] Omeprazole Magnesium [Prilosec Otc] 20 mg PO DAILY 08/26/16 [History] Rizatriptan Benzoate [Maxalt] 10 mg PO DAILY PRN 08/26/16 [History] Allergies/Adverse Reactions: Allergies No Known Allergies Allergy (Verified 08/26/16 19:31) Date of admission: 08/27/16 01:06 Primary care physician: Nemo Ro CNP Consults: 08/27/16 15:13 Consult to Invasive Line Access Team [CONS] Routine Reason for Consult: Picc Line Insertion Line Type: EPIV 08/27/16 17:25 Consult to Invasive Line Access Team [CONS] Routine Reason for Consult: limited vascular access Line Type: EPIV 08/31/16 07:43 Consult to Oncology Hematology [CONS] Stat Consulting Provider: Mejia Manjarrez Reason for Consult: SMV thrombus Time Notified: 07:44 Call Completed: Yes Discharging clinician: Ariel Weir Anticipated date of discharge: 09/01/16 - Patient Status Disposition: Home, Self-Care Condition: Fair Functional capacity at discharge: independent ambulation Overall status at discharge: patient is back to baseline - Discharge Instructions Instructions: Rivaroxaban (By mouth), Chronic Hypertension (DC) Follow Up With: Nemo Ro CNP [Primary Care Provider] - 09/08/16 1:00 pm Christian Ruiz MD [Partnered Physician] - (His office/cancer center will call you with appt date & time.) Additional Instructions: As tolerated - Diet and Activity Activity: resume usual activities as tolerated Diet: advance to your usual diet Interval History: Ms. Reid is a 45 year old female with a history of hyperlipidemia, morbid obesity, hypertension and GERD who presented to ER with chief complaint one- week history of abdominal pain, nausea and vomiting. 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 Surgery was consulted and patient was admitted to the hospital for further management. Patient was started on IV heparin drip and IV antibiotic for the above finding, during this hospital stay patient was managed medically with no surgical intervention. she improved clinically with conservative measures and we were able to wean her off IVF and pain meds and advance diet which she was able to tolerate at the time of discharge. She did not have any nausea or vomiting and was moving her bowels. Hematology/ oncology was consulted for further recommendation for anticoagulation and hypercoagulable workup. As per hematology patient is being discharged on xarelto and will follow-up with oncology as outpatient for further workup. she is being dc in stable condition. Hospital course: Ms. Reid is a 45 year old female Time spent discussing smoking cessation with patient: more than 10 minutes - Time Spent with Patient Total time spent providing and/or coordinating discharge services: Greater than 30 minutes - Constitutional Vitals: Temp Pulse Resp BP Pulse Ox 98.3 F 65 17 151/90 95 09/01/16 07:14 09/01/16 07:14 09/01/16 07:14 09/01/16 07:14 09/01/16 07:14 General appearance: Present: cooperative, A&O X 3, severe distress, answers questions appropriately Exam: - Head Head exam: Present: atraumatic, normal inspection, normocephalic - Eye Eye exam: Present: EOMI, PERRL Pupils: Present: PERRL - ENT ENT exam: Present: mucous membranes moist - Neck Neck exam: Present: full ROM, normal inspection. Absent: tenderness - Respiratory Respiratory exam: Present: CTAB. Absent: accessory muscle use, wheezes - Cardiovascular Cardiovascular exam: Present: RRR, +S1, +S2. Absent: clicks, rubs, systolic murmur - GI/Abdominal GI/Abdominal exam: Present: normal bowel sounds, soft. Absent: distended, firm , rebound, rigid, tenderness - Extremities Exam Extremities exam: Present: normal inspection. Absent: calf tenderness, pedal edema, tenderness - Neurological Exam Neurological exam: Present: alert, CN II-XII intact, oriented X3, no focal deficits. Absent: altered, pronater drift, facial droop - VTE Reasons for not Prescribing Prophylaxis: Not indicated-Anticoagulated or INR therapeutic
== END 2016-09-01 10:45 | disposition home or self-care (01) | DRG 442 ==
LOC: EMEROO 17:42 → 3ANU 17:42 → SUATTDRO 08-27 01:06 → 2NENU 08-27 15:56
PROVIDERS: ADMIT Pediatrics; ATTEND Internal Medicine Endocrinology, Diabetes & Metabolism